=== PATIENT | female | born 1945 | race Caucasian/White ===

== ENCOUNTER → 2018-06-26 13:15 | Outpatient (CLI) | payer MEDICARE, SELFPAY | PROVIDERS: PCP Family Medicine; Visit Provider Student in an Organized Health Care Education/Training Program | DX: M16.12 Unilateral primary osteoarthritis, left hip (principal) | CPT/HCPCS: 99213 ==

== ENCOUNTER 2018-07-26 08:26 | Outpatient (CLI) | payer MEDICARE, SELFPAY ==
--- NOTE | 2018-07-26 08:09 | DI.RAD_ITS ---
SYMPTOM/DIAGNOSIS: PREOP TEMPLATE AP LEFT HIP. Joint space narrowing, articular sclerosis and subchondral cyst formation are demonstrated. There is jorden-articular hypertrophic spurring. The findings are consistent with severe DJD involving the left hip. These findings described on a prior study of 04/10/18.
== END 2018-07-26 08:46 ==
PROVIDERS: PCP Family Medicine; Referring Provider Family Medicine; Visit Provider Student in an Organized Health Care Education/Training Program
DX: M16.12 Unilateral primary osteoarthritis, left hip (principal); M25.552 Pain in left hip
CPT/HCPCS: 36415; 80048; 85027; 86850; 86900; 86901; 73501; NC PREOP

== ENCOUNTER 2018-07-26 09:22 | Outpatient (CLI) | payer MEDICARE, SELFPAY ==
[2018-07-26 11:35] LABS: HCT 44.4 % (36.0-46.0); HGB 14.4 g/dL (12.0-15.5); Mean Corp. HGB Concentration 32.4 g/dL (32.0-36.0); Mean Corpuscular Hemoglobin 29.8 pg (27.0-33.0); Mean Corpuscular Volume 91.7 fL (80-95); Mean Platelet Volume 9.7 fL (8.0-11.0); Platelet Count 261 x1000/uL (130-400); RBC 4.84 m/cumm (4.00-5.20); RBC Distribution Width 13.2 % (11.7-14.6); White Blood Cell Count 4.42 k/cumm (4.4-10.8)
[2018-07-26 12:04] LABS: Anion Gap 6.8 mmol/L (3-11); BUN 15 mg/dL (7-18); CO2 29.2 mmol/L (21.0-32.0); CREATININE 0.75 mg/dL (0.55-1.02); Chloride 104 mmol/L (98-107); Glucose 82 mg/dL (70-100); Potassium 4.3 mmol/L (3.5-5.1); Sodium 140 mmol/L (136-145)
--- NOTE | 2018-07-27 08:04 | W.PREOPHP ---
Documented by User: Alma Daniel 07/27/18 10:40 Date of service: 07/26/18 Assessment and Plan (1) Primary osteoarthritis of left hip: Current visit: No Status: Chronic X-ray of left hip with marker: Severe DJD noted with [id number] articulation with the presence of osteophytes at the superior aspect of joint, calcific changes as well as subchondral cyst at inferior aspect of hip joint. X-ray findings was compared to x-ray from April 11, 2018. Plan: Patient has continued to have left hip pain and has failed conservative therapies including [id number] pain medication and fluoroscopic intra-articular injection, at this time due to patient's severe arthritis noted on x-ray as well as her persistent left hip pain surgical intervention is recommended. Discussed surgical technique, recovery as well as surgical risks including but not limited to infection, injury to nerve/soft tissue/blood vessels with patient and her daughter in detail. After discussion patient elects to continue with surgery. Patient and her daughter had opportunity to have questions answered to their satisfaction. Patient will continue with her preoperative visits for her scheduled left MADDIE on August 01, [address] Ortega. Patient will contact office if any issues arise prior to scheduled date. History of Present Illness Chief Complaint: Here for my pre-op visit for my [left] hip replacement Narrative: Ms. Arauz is a 72-year-old female who presents to clinic with her daughter for her preoperative visit for her left MADDIE scheduled on August 01, [address] Ortega. Patient reports that her left hip has been causing pain located in the lateral and anterior groin. She describes pain as an intense ache located in her anterior groin and a shooting pain that will radiate to her left buttocks. Patient reports her pain has been aggravated by any kind of bending action, prolonged walking, walking on uneven ground and reports that she feels unstable going downstairs. She occasionally had to limp due to the severity of pain. She had attended physical therapy for left hip complaints in the past which helped improve her strength in 2013. Patient had tried ibuprofen and naproxen on a regular schedule to help reduce pain, she describes that the medications helped to improve the feeling of inflammation but did not provide adequate pain relief. Patient did undergo a fluoroscopy hip injection on April 13, 2018 which she reports provided approximately 6 weeks of pain relief. Patient denies any falls or injuries since she was last seen. She denies any numbness or tingling. Patient denies history of chest pain but describes infrequent history of occasional left-sided chest pressure that occurs when she feels like her heart skips a beat/has an extra beat. Episodes have happened when patient was at rest. Patient reports onset of this feeling around the time of her kidney stone, she reports seeing addiction professional several years ago for this issue and receiving EKGs at that time. Patient reports there are no abnormal findings in her cardiac workup. Patient denies any radiation of pressure to her jaw or arm. Denies diaphoresis or dyspnea. Patient reports she has not had this feeling in greater than 1 year. Pertinent Surgical Information See HPI for information regarding complaints of chest pressure. Patient denies past medical history of stroke, cardiac issues, asthma, COPD, obstructive sleep apnea, liver issues, hepatitis, gastrointestinal ulcers, bleeding disorders, seizures, depression, diabetes, autoimmune disorders or thyroid disease. Patient denies prior complications from surgery or anesthesia. Review of Systems Constitutional Denies fever(s), Denies frequent falls, Reports headache(s) (Occasional headaches improve with ibuprofen) and Reports weight loss (~20 lbs over the last year due to stress surrounding helping her elderly father) Eyes Denies change in vision ENT Reports headache(s) (Occasional headaches improve with ibuprofen), Denies epistaxis, Denies nasal discharge and Denies sore throat Comments: denies change in hearing, patient wears upper and lower dentures Cardiovascular Denies chest pain, Denies chest pain at rest, Denies rapid heart rate, Reports irregular heart rhythm (reports she feels like her heart skips a beat or has an extra beat, last occurrence was greater than 1 year ago), Denies lightheadedness, Denies radiating jaw, neck or arm pain, Denies dyspnea, Denies dyspnea on exertion, Denies orthopnea, Denies paroxysmal nocturnal dyspnea and Denies slow heart rate Comments: Describes infrequent left chest pressure that occurs when patient feels like her heart skips a beat/has an extra beat. Respiratory Denies cough (denies productive cough), Denies dyspnea, Denies dyspnea on exertion and Denies wheezing Gastrointestinal Denies abdominal pain, Denies melena, Denies hematochezia, Reports constipation (Chronic, treats with Colace as needed), Denies diarrhea, Denies nausea and Denies vomiting Genitourinary Denies hematuria, Reports nocturia, Denies dysuria and Denies urinary urgency Musculoskeletal Reports deformity (Reports right leg longer than left), Denies joint swelling, Reports muscle weakness, Denies numbness, Reports stiffness and Denies tingling Neurologic Denies frequent falls, Reports headache(s) (Occasional headaches improve with ibuprofen), Denies numbness and Denies tingling Psychiatric Reports anxiety (Surrounding caring for her father) and Denies depression Allergic/Immunologic Denies wheezing PFSH Family History Mother Heart disease Stroke Atrial fibrillation Sister Personal history of malignant neoplasm Heart disease Father Heart disease Constipation Osteoarthritis Sister Atrial fibrillation Osteoarthritis Hypertension Medical History Kidney stone Borderline hyperlipidemia (Acute) Borderline high blood pressure (Chronic) Constipation (Chronic) Social History marital status: number of children: 7 current occupational status: retired Smoking/Tobacco Use Status: Never alcohol intake: never substance use type: does not use Surgical History Dilation and curettage removal of kidney stone Meds Home Medications Medication Instructions Recorded Confirmed Type docusate sodium [Colace] 50 mg PO PRN NS 04/13/13 07/27/18 History aspirin 81 mg PO DAILY tab-cap 04/10/18 07/27/18 History sennosides [senna] 8.6 mg PO PRN PRN 07/26/18 07/26/18 History Allergies Allergy/AdvReac Type Severity Reaction Status Date / Time No Known Allergies Allergy Verified 07/27/18 08:25 Exam Const General: cooperative, healthy appearing and no acute distress [facility] Head: normal to inspection, normocephalic and atraumatic Ears: external ears normal General nose exam: no nasal discharge Face and sinus: face symmetric Mouth: oral mucosae normal and other (Full upper and lower dentures intact) Throat: posterior oropharynx normal Eyes General: appearance normal, both eyes and all related structures Pupils: PERRL EOM: EOM intact bilaterally Neck Neck: normal visual inspection and trachea midline Carotids: normal carotid upstroke Lymphatic: no lymphadenopathy noted Resp Effort & Inspection: normal respiratory effort Auscultation: clear to auscultation bilaterally Cardio Heart Sounds: S1 normal, S2 normal, no gallops, no murmurs and no rubs Pulses: radial pulses present GI Palpation: soft and no hepatosplenomegaly (Slight tenderness to deep palpation of liver edge) Auscultation: normal bowel sounds Skin General skin exam: no rashes or lesions noted Neuro General: alert and awake Extrem Other: Left hip examination: Skin is intact without areas of rash, erythema, edema or ecchymosis. Active range of motion yields flexion of 100 degrees and full extension. Passive range of motion elicits internal rotation of 5 degrees with pain at the anterior joint and external rotation of 20 degrees. Resisted straight leg raise elicited pain in the anterior aspect of joint. Results Labs : 07/26/18 11:02 07/26/18 11:02 Laboratory Results - last 24 hr 07/26/18 07/26/18 07/26/18 11:02 11:02 11:02 WBC 4.42 RBC 4.84 Hgb 14.4 Hct 44.4 MCV 91.7 MCH 29.8 MCHC 32.4 RDW 13.2 Plt Count 261 MPV 9.7 Sodium 140 Potassium 4.3 Chloride 104 Carbon Dioxide 29.2 Anion Gap 6.8 BUN 15 Creatinine 0.75 Estimated GFR/1.73 m2 >= 60.00 Glucose 82 Calcium 9.0 Patient ABO/Rh A Positive Antibody Screen Negative
--- NOTE | 2018-07-27 08:10 | HPE_ITS ---
Documented by User: Alma Daniel 07/27/18 10:40 Date of service: 07/26/18 Assessment and Plan (1) Primary osteoarthritis of left hip: Current visit: No Status: Chronic X-ray of left hip with marker: Severe DJD noted with [id number] articulation with the presence of osteophytes at the superior aspect of joint, calcific changes as well as subchondral cyst at inferior aspect of hip joint. X- ray findings was compared to x-ray from April 11, 2018. Plan: Patient has continued to have left hip pain and has failed conservative therapies including [id number] pain medication and fluoroscopic intra- articular injection, at this time due to patient's severe arthritis noted on x- ray as well as her persistent left hip pain surgical intervention is recommended. Discussed surgical technique, recovery as well as surgical risks including but not limited to infection, injury to nerve/soft tissue/blood vessels with patient and her daughter in detail. After discussion patient elects to continue with surgery. Patient and her daughter had opportunity to have questions answered to their satisfaction. Patient will continue with her preoperative visits for her scheduled left MADDIE on August 01, [address] Ortega. Patient will contact office if any issues arise prior to scheduled date. History of Present Illness Chief Complaint: Here for my pre-op visit for my [left] hip replacement Narrative: Ms. Arauz is a 72-year-old female who presents to clinic with her daughter for her preoperative visit for her left MADDIE scheduled on August 01, [address] Ortega. Patient reports that her left hip has been causing pain located in the lateral and anterior groin. She describes pain as an intense ache located in her anterior groin and a shooting pain that will radiate to her left buttocks. Patient reports her pain has been aggravated by any kind of bending action, prolonged walking, walking on uneven ground and reports that she feels unstable going downstairs. She occasionally had to limp due to the severity of pain. She had attended physical therapy for left hip complaints in the past which helped improve her strength in 2013. Patient had tried ibuprofen and naproxen on a regular schedule to help reduce pain, she describes that the medications helped to improve the feeling of inflammation but did not provide adequate pain relief. Patient did undergo a fluoroscopy hip injection on April 13, 2018 which she reports provided approximately 6 weeks of pain relief. Patient denies any falls or injuries since she was last seen. She denies any numbness or tingling. Patient denies history of chest pain but describes infrequent history of occasional left-sided chest pressure that occurs when she feels like her heart skips a beat/has an extra beat. Episodes have happened when patient was at rest. Patient reports onset of this feeling around the time of her kidney stone , she reports seeing print developer several years ago for this issue and receiving EKGs at that time. Patient reports there are no abnormal findings in her cardiac workup. Patient denies any radiation of pressure to her jaw or arm. Denies diaphoresis or dyspnea. Patient reports she has not had this feeling in greater than 1 year. Pertinent Surgical Information See HPI for information regarding complaints of chest pressure. Patient denies past medical history of stroke, cardiac issues, asthma, COPD, obstructive sleep apnea, liver issues, hepatitis, gastrointestinal ulcers, bleeding disorders, seizures, depression, diabetes, autoimmune disorders or thyroid disease. Patient denies prior complications from surgery or anesthesia. Review of Systems Constitutional Denies fever(s), Denies frequent falls, Reports headache(s) (Occasional headaches improve with ibuprofen) and Reports weight loss (~20 lbs over the last year due to stress surrounding helping her elderly father) Eyes Denies change in vision ENT Reports headache(s) (Occasional headaches improve with ibuprofen), Denies epistaxis, Denies nasal discharge and Denies sore throat Comments: denies change in hearing, patient wears upper and lower dentures Cardiovascular Denies chest pain, Denies chest pain at rest, Denies rapid heart rate, Reports irregular heart rhythm (reports she feels like her heart skips a beat or has an extra beat, last occurrence was greater than 1 year ago), Denies lightheadedness , Denies radiating jaw, neck or arm pain, Denies dyspnea, Denies dyspnea on exertion, Denies orthopnea, Denies paroxysmal nocturnal dyspnea and Denies slow heart rate Comments: Describes infrequent left chest pressure that occurs when patient feels like her heart skips a beat/has an extra beat. Respiratory Denies cough (denies productive cough), Denies dyspnea, Denies dyspnea on exertion and Denies wheezing Gastrointestinal Denies abdominal pain, Denies melena, Denies hematochezia, Reports constipation (Chronic, treats with Colace as needed), Denies diarrhea, Denies nausea and Denies vomiting Genitourinary Denies hematuria, Reports nocturia, Denies dysuria and Denies urinary urgency Musculoskeletal Reports deformity (Reports right leg longer than left), Denies joint swelling, Reports muscle weakness, Denies numbness, Reports stiffness and Denies tingling Neurologic Denies frequent falls, Reports headache(s) (Occasional headaches improve with ibuprofen), Denies numbness and Denies tingling Psychiatric Reports anxiety (Surrounding caring for her father) and Denies depression Allergic/Immunologic Denies wheezing PFSH Family History Mother Heart disease Stroke Atrial fibrillation Sister Personal history of malignant neoplasm Heart disease Father Heart disease Constipation Osteoarthritis Sister Atrial fibrillation Osteoarthritis Hypertension Medical History Kidney stone Borderline hyperlipidemia (Acute) Borderline high blood pressure (Chronic) Constipation (Chronic) Social History marital status: number of children: 7 current occupational status: retired Smoking/Tobacco Use Status: Never alcohol intake: never substance use type: does not use Surgical History Dilation and curettage removal of kidney stone Meds Home Medications Medication Instructions Recorded Confirmed Type docusate sodium [Colace] 50 mg PO PRN NS 04/13/13 07/27/18 History aspirin 81 mg PO DAILY tab-cap 04/10/18 07/27/18 History sennosides [senna] 8.6 mg PO PRN PRN 07/26/18 07/26/18 History Allergies Allergy/AdvReac Type Severity Reaction Status Date / Time No Known Allergies Allergy Verified 07/27/18 08:25 Exam Const General: cooperative, healthy appearing and no acute distress [facility] Head: normal to inspection, normocephalic and atraumatic Ears: external ears normal General nose exam: no nasal discharge Face and sinus: face symmetric Mouth: oral mucosae normal and other (Full upper and lower dentures intact) Throat: posterior oropharynx normal Eyes General: appearance normal, both eyes and all related structures Pupils: PERRL EOM: EOM intact bilaterally Neck Neck: normal visual inspection and trachea midline Carotids: normal carotid upstroke Lymphatic: no lymphadenopathy noted Resp Effort & Inspection: normal respiratory effort Auscultation: clear to auscultation bilaterally Cardio Heart Sounds: S1 normal, S2 normal, no gallops, no murmurs and no rubs Pulses: radial pulses present GI Palpation: soft and no hepatosplenomegaly (Slight tenderness to deep palpation of liver edge) Auscultation: normal bowel sounds Skin General skin exam: no rashes or lesions noted Neuro General: alert and awake Extrem Other: Left hip examination: Skin is intact without areas of rash, erythema, edema or ecchymosis. Active range of motion yields flexion of 100 degrees and full extension. Passive range of motion elicits internal rotation of 5 degrees with pain at the anterior joint and external rotation of 20 degrees. Resisted straight leg raise elicited pain in the anterior aspect of joint. Results Labs : 07/26/18 11:02 07/26/18 11:02 Laboratory Results - last 24 hr 07/26/18 07/26/18 07/26/18 11:02 11:02 11:02 WBC 4.42 RBC 4.84 Hgb 14.4 Hct 44.4 MCV 91.7 MCH 29.8 MCHC 32.4 RDW 13.2 Plt Count 261 MPV 9.7 Sodium 140 Potassium 4.3 Chloride 104 Carbon Dioxide 29.2 Anion Gap 6.8 BUN 15 Creatinine 0.75 Estimated GFR/1.73 m2 >= 60.00 Glucose 82 Calcium 9.0 Patient ABO/Rh A Positive Antibody Screen Negative
== END 2018-07-26 09:42 ==
PROVIDERS: PCP Family Medicine; Visit Provider Student in an Organized Health Care Education/Training Program
DX: M25.552 Pain in left hip (principal); M16.12 Unilateral primary osteoarthritis, left hip; Z01.818 Encounter for other preprocedural examination
CPT/HCPCS: 36415; 80048; 85027; 86850; 86900; 86901

== ENCOUNTER → 2018-08-01 07:46 | Outpatient (BNVA) | payer MEDICARE, SELFPAY | PROVIDERS: PCP Family Medicine; Referring Provider Family Medicine; Visit Provider Student in an Organized Health Care Education/Training Program | DX: R69 Illness, unspecified (principal) ==

== ENCOUNTER 2018-08-01 11:44 | Inpatient (IN) | payer MEDICARE, SELFPAY ==
[2018-08-01] VITALS (11 sets, daily range): BP systolic 116–154; BP diastolic 61–88; PULSE 62–87; RESP 13–34; TEMP 36.2–37; O2SAT 98–100
[2018-08-01] MEDS: Lactated Ringers 1,000 ML 80 ML IV ×2 (11:38→15:38)
[2018-08-01] MEDS: Celecoxib 200 MG CAP 400 MG PO (11:39)
[2018-08-01] MEDS: Bupivacaine 0.25% Pres-Free 10 ML VIAL 50 ML IJ (14:25)
[2018-08-01] MEDS: Ketorolac 30 MG/ML VIAL (14:25)
[2018-08-01] MEDS: Normal Saline 50 ML (14:25)
--- NOTE | 2018-08-01 14:32 | DI.RAD_ITS ---
SYMPTOMS/DIAGNOSIS: OSTEOARTHRITIS, LEFT HIP LT HIP IN THE OR: Fluoroscopy Time: 39.4 sec C-arm fluoroscopy was utilized by Dr. Ortega. Hard copies show placement of total hip joint replacement on the left.
--- NOTE | 2018-08-01 14:43 | PT.INNT ---
Date of service: 08/01/18 Time of Service: 14:44 PT Notes PHYSICAL THERAPY NOTE 08/01/18 PT consult received, chart reviewed, pt not yet to unit. Elizabeth Quinn PT
--- NOTE | 2018-08-01 15:27 | DI.RAD_ITS ---
SYMPTOMS/DIAGNOSIS: S/P LEFT ANTERIOR TOTAL HIP ARTHROPLASTY PORTABLE PELVIS: AP view of the pelvis was obtained and shows total hip joint replacement in position on the left. Components appear well seated. No other significant bony abnormality seen.
[2018-08-01] MEDS: Normal Saline Flush 10 ML SYR IV (16:45)
--- NOTE | 2018-08-01 17:53 | NUR.NOTE ---
Nursing Note: Patient admitted to room 212 from PACU via stretcher at 1606
--- NOTE | 2018-08-01 19:22 | NUR.NOTE ---
Nursing Note: When this patient arrived to the floor just after 1600 she was able to barely lift her left leg off the bed. Patient also stated that she could feel this RN touching her leg but that it also feels numb from her butt down. At approximately 1800 the patient states that everything still feels numb. Patient is able to fully pick her leg off the bed now as well as move her foot and bend her knee.
[2018-08-01] MEDS: Celecoxib 100 MG CAP 200 MG PO (20:26)
[2018-08-01] MEDS: Acetaminophen 500 MG TAB 1000 MG PO (20:27)
[2018-08-02 00:12] VITALS: BP 128/75; PULSE 60; RESP 19; TEMP 36.6; O2SAT 98
[2018-08-02] MEDS: Lactated Ringers 1,000 ML 80 ML IV (01:09)
[2018-08-02 03:55] VITALS: BP 113/65; PULSE 70; RESP 18; TEMP 36.7; O2SAT 98
--- NOTE | 2018-08-02 06:57 | ROE_ITS ---
Date of service: 08/01/18 Time of Service: 15:20 Operative Note DATE OF PROCEDURE: 08/01/18 PRE-OP DIAGNOSIS: Left Hip Osteoarthritis POST-OP DIAGNOSIS: same PROCEDURE: Left Anterior Total Hip Arthroplasty SURGEON: Dany Ortega VACUUM CLEANER ASSEMBLER: Christopher Sow ANESTHESIA: spinal ESTIMATED BLOOD LOSS: 300 PATHOLOGY: none sent COMPLICATIONS: None Patient was transported to: PACU Patient's condition: stable Implants: 1. Depuy [place] Acetabular Component, 52 mm 2. Depuy Acetabular Liner, 52 x 36 mm 3. Depuy Corail coxa vara femoral Stem, Size 12 4. Depuy Altrx Ceramic Femoral Head, Size 36+1.5 mm Indications: I have seen Anna in clinic for symptoms of hip arthritis, confirmed with radiographic findings. Anna has exhausted nonoperative methods and was having significant limitations in daily function and desired better function and less pain. I discussed the technical details of a hip replacement. I explained the risks of the procedure to include, but not limited to, bleeding, infection, pain, stiffness, fracture, damage to nerves and vessels, damage to muscles and tendons, loosening, instability, leg length inequality, need for repeat procedure, blood clot and cardiopulmonary demise. Despite these risks, she elected to proceed. Findings: There was significant signs of arthritis throughout the hip. Large osteophytes were noted along the femoral neck as well as the superior acetabulum. Her bone overall was quite soft with 2 chips noted at the cut surface were osteophytes chipped off. Neither had propagation of fracture. Procedure Description: Anna was greeted in the preoperative holding area where the correct side was identified and marked. The consent was reviewed with the patient and signed. The history and physical was updated. All questions were answered. Anna was taken back to the operating room. A spinal anesthestic was then administered. The patient was placed into the supine position on the operating room table. The patient was then positioned onto the ARCH table. Both feet were wrapped with [place]brill cotton wrap along with Coban. The feet were placed in specialized boots for the ARCH table, well seated within the boot and secured. SCDs were applied. The patient was then slid down onto a peroneal post and the nonoperative leg was secured in a leg langford attached to the table. The operative side was placed into the ARCH table attachment and bed height and positioning was secured. A preoperative AP pelvis was obtained to serve as a reference for determining leg lengths. Prophylactic antibiotics in the form of cefazolin were administered. 1g of Tranxemic Acid was given intravenously within 30 minutes of incision. The left leg was then prepped with Chloraprep and draped in a standard fashion with a large shower-curtain type drape with Iodine impregnated skin protection. A timeout to confirm correct identity, side and site, procedure, allergies, anesthesia, and medical concerns was performed. An obliquely oriented incision was made starting lateral to the ASIS and running distal over the Tensor Fascia Bianca (TFL) muscle belly toward the fibular head, approximately 10cm. The skin and soft tissue was dissected sharply, through Jaycob?s fascia, and to the fascia of the TFL. With the fascia and superior border of the IT band identified, the fascia was incised with a new knife just above any perforators from the IT band. The TFL muscle belly was bluntly dissected away from the fascia and moved laterally. The fat between TFL and rectus was identified to ensure the dissection was not within the TFL. Blunt dissection created space between abductors and the capsule and retractor was placed over the lateral femoral neck. The fibers of the rectus femoris tendon were identified and these were freed from the anterior capsule. A second cobra retractor was placed around the medial femoral neck. The TFL was further retracted laterally to show the deep fascia. Careful dissection through this layer identified three main crossing vessels of the lateral femoral circumflex. These were cauterized in multiple locations and then cut without any noticeable bleeding. The TFL was further released bluntly from the deep fascia to expose anterior hip capsule and fat the Osorio orthopaedic retractor was then placed beneath the TFL and against sartorius and medial soft tissues to protect and retract the soft tissues. A T-capsulotomy was then performed starting at the superior lateral acetabulum and moving distally to the intertrochanteric ridge. These capsular flaps were tagged with a No. 1 Ethibond and elevated from within. The capsular flaps were released to the shoulder of the lateral neck and to the lesser trochanter to give excellent visualization of the proximal femur. A neck osteotomy was performed using an oscillating saw based on preoperative templates. This cut started in the shoulder and of the lateral neck and exited medially. The saw was at all times directed medially to avoid injury to the greater trochanter. 6cm of traction was applied to the leg and the osteotomy opened. The femoral head was removed with a corkscrew, making sure to protect the TFL on its exit. This was measured on the back table to determing the starting reamer size. Portions of the rectus obscuring visualization were minimally elevated off the superior acetabulum. An anterior retractor was placed over the anterior wall between capsule and labrum. A posterior retractor was placed similarly. This provided excellent visualization. The contents of the cotyloid fossa were removed with electrocautery and the labrum was removed with a knife. There was a notable floor osteophyte. Acetabular reaming began with a 45 mm reamer. This first reaming was directed anterior to posterior and medial to get down to the true floor. This was inspected and reamed until the true floor was reached. I then reamed sequentially up to a 51 mm reamer where good fit was obtained. The larger reamers were oriented based on anatomical reference of the anterior and lateral acosta to ensure proper abduction and anteversion. Positioning and size was confirmed with the fluoroscopy. A 52 mm Depuy [place] acetabular component was selected. The acetabulum was reamed around the periphery with the selected acetabular size to prevent a rim fit. The deep tissues were irrigated. The acetabular component was then impacted in a position of about 40-45 degrees of abduction and 15-20 degrees of anteversion, using the patient?s anatomy as the ultimate landmark. Fluoroscopy was used to confirm this. There was excellent agricultural education instructor of the acetabular component and the inserting handle was removed. A primary acetabular screw was placed into the ilium by drilling through one of the holes in the acetabular component. This was measured and an approrpriately sized screw was placed with excellent purchase. It was checked not to be proud. The acetabular liner, Depuy 52 x 36 mm polyethylene liner, was inserted and lined up with the tines of the acetabular component. There was no soft tissue interposition. The liner was then impacted into position and confirmed to be well-seated. A portion of the jorden-articular cocktail was then injected around the acetabulum into the capsule and periosteum. This cocktail consisted of 50cc of 0.25% Bupivicaine and 20cc of Exparel, expanded to a total of 120cc. Traction was released from the femur. The leg was rotated to 120 degrees. Any remaining medial capsule was released until the lesser trochanter was easily palpable. A Simons retractor was placed medially. The lateral capsule was further released into the shoulder to allow access to the greater trochanter. A Simons retractor was placed over the greater trochanter which allowed the trochanter to flip in front of the capsule for excellent exposure. The leg was brought down into maximal extension and 20 degrees of adduction while ensuring there was no impingement on the acetabulum. Any remnant capsule within the trochanter was released. Piriformis and obturator externis were identified and protected. There was excellent access to the proximal femur. The lateral neck remnant was removed with a rongeur. A blunt canal probe was used to identify the canal and trajectory for later broaching. A box osteotome initiated the broach course. A small curved rasp and a curved curette were used to work laterally. Broaching then began with a size 8 Corail broach. This was inserted manually around the trochanter and into the canal before mallet blows. The broach was seated to a few millimeters below the cut level based on the neck cut and the preoperative template. Sequential broaching was continued until a tight fit was obtained with good rotational control of the femur. The excess bone above the level of the implant was then planed. During this planning process some of the bone spurs, 2 , from around the neck cut level cracked off. These were removed. Left a small chip out of the bone at the neck cut level. It did not affect rotational stability. A trial coxa vara neck was inserted along with a +1.5 trial head. The leg was brought out of extension and adduction and then reduced with traction and internal rotation. The leg was stable anteriorly in a position of 30 degrees of extension and 90 degrees of external rotation. Fluoroscopy was used to ensure there was no fracture and the stem was seated well. Leg lengths were checked with an AP pelvis and pelvic reference points. Once content with the desired offset and leg lengths, the leg was brought back into extension, external rotation and adduction. The periosteum and surrounding tissue was injected with remaining portion of the jorden-articular cocktail. The proximal femur was irrigated as well as the deep tissues. The [employer] Corail coxa vara stem, size 12, was then manually inserted into the proximal femur making sure to control rotation. It was then malleted into position with light blows, giving breaks to allow bone expansion and decrease risk of fracture. The selected Depuy Altrx Ceramic Head, size 36+ 1.5 mm, was then placed onto the clean and dry trunnion and secured with impaction onto the tapered fit. The leg was brought back out of extension and adduction and reduced with traction and internal rotation. Stability was confirmed with no shuck at 90 degrees of external rotation and 30 degrees of extension. No impingement through range of motion arc. Final x-ray images were obtained with fluoroscopy to confirm adequate positioning and no intraoperative fracture. The deep tissues were thoroughly irrigated with a pulse lavage. The second dose of TXA 1g was administered intravenously. The capsule was then reapproximated with the previously placed Ethibond sutures. The TFL fascia was finally closed with a No. 2 Stratafix, barbed suture. Deep tissues were then reapproximated with 0 Vicryl and a running 2-0 Vicryl. The skin was closed with a running 4-0 Monocryl in a subcuticular fashion. This was reinforced with skin glue. A Mepilex silver dressing was applied. At the end of the case, all counts were correct. Anna was transferred to the hospital bed without difficulty and suffering no apparent complication. Anna has a good prognosis. Physical therapy will start today and without restrictions, weight-bearing as tolerated. Aspirin 81mg BID will be used for DVT prophylaxis.
[2018-08-02 07:21] LABS: HCT 35.6 % (36.0-46.0); HGB 11.7 g/dL (12.0-15.5); Mean Corp. HGB Concentration 32.9 g/dL (32.0-36.0); Mean Corpuscular Hemoglobin 30.3 pg (27.0-33.0); Mean Corpuscular Volume 92.2 fL (80-95); Mean Platelet Volume 9.8 fL (8.0-11.0); Platelet Count 215 x1000/uL (130-400); RBC 3.86 m/cumm (4.00-5.20); RBC Distribution Width 12.8 % (11.7-14.6); White Blood Cell Count 7.95 k/cumm (4.4-10.8)
[2018-08-02 07:26] LABS: Anion Gap 6.5 mmol/L (3-11); BUN 12 mg/dL (7-18); CO2 28.5 mmol/L (21.0-32.0); CREATININE 0.71 mg/dL (0.55-1.02); Calcium 8.3 mg/dL (8.5-10.1); Chloride 105 mmol/L (98-107); Glucose 102 mg/dL (70-100); Potassium 3.7 mmol/L (3.5-5.1); Sodium 140 mmol/L (136-145)
[2018-08-02 07:46] VITALS: BP 143/76; PULSE 75; RESP 16; TEMP 37; O2SAT 99
[2018-08-02] MEDS: Acetaminophen 500 MG TAB 1000 MG PO (08:57)
[2018-08-02] MEDS: Aspirin 81 MG CHEW PO (08:58)
[2018-08-02] MEDS: Celecoxib 100 MG CAP 200 MG PO (08:58)
--- NOTE | 2018-08-02 09:50 | PDOC.CMIN ---
- If Service Date Differs Date of service: 08/02/18 Time of Service: 09:50 Care Management Initial Assess REASON FOR HOSPITALIZATION:: Left Anterior Total Hip Arthroplasty. PAST MEDICAL HISTORY/PAST SURGICAL HISTORY:: Kidney stones, osteoarthritis (L hip), borderline HTN, borderline hyperlipidemia. Surgical hx: kidney stone removal, dilation and curettage. PREVIOUS FUNCTIONAL STATUS/SOCIAL/FAMILY SUPPORTS:: Anna resides in her own home in [facility] with her elderly father whom she cares for. For the next several weeks she is staying in her father's home while construction is taking place at her's. He father's house has five steps up to the porch and then one into the home, and Anna's home has two steps. There are grab bars at her father's home. Her father is in [place] for the winter. Anna's daughter, Elenita, will be staying with Anna for the next month to assist while she recovers from surgery. Anna has seven children, all of whom are local and are very supportive. She also reports she has many friends locally who can assist her if needed. She is independent with her ADLs and transportation and has several walkers at home that her mother () and father have used. 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 CURRENT FUNCTIONAL STATUS:: Anna is sitting in her chair with her son Gibson at bedside, when CM visits this morning. She is engaged in conversation, makes good eye contact and is talkative. Anna reports that her pain is minimal and that she has been working well with PT. She continues to receive IV fluids and antibiotics and is due to have her lawson removed this morning. Anna reports that she spoke with Dr. Ortega earlier and he is anticipating a discharge later this afternoon. Anna has no reservations about returning home and reports that she has great support with her daughter, Elenita, who is staying with her for a month prior to returing to [place]. Son Gibson is local, and Anna reports that he regularly visits daily. Anna is not sure if she has advanced directives and would like the paperwork if none are on file for her. CM will provide paperwork. ADVANCE DIRECTIVES:: None on file at [facility]. Patient provided with paperwork per request. Has patient been provided with information about the portal?: Yes Did the patient sign up for the portal?: No CODE STATUS:: Full Code INSURANCE COVERAGE / FINANCIAL ISSUES:: [employer], Medicare. CURRENT HOME/COMMUNITY SERVICES/EQUIPMENT:: No current home or community services. PRIMARY CARE PHYSICIAN:: Vida Moy. POTENTIAL DISCHARGE NEEDS:: Follow up appointment with MD. PATIENT/FAMILY EDUCATION NEEDS:: Discharge education, any limitations, and follow up plan of care. Ask Me Three discussion. ANTICIPATED BARRIERS TO DISCHARGE:: No anticipated barriers to discharge. TRANSPORTATION:: Anna will transport via private vehicle with her sonGibson. PLAN:: Anna will discharge home when medically ready per MD. Anticipate patient will discharge home with no services and follow up with MD. CM will continue to offer support to patient, family and care team regarding discharge planning and disposition.
--- NOTE | 2018-08-02 09:50 | PT.INIE ---
Date of service: 08/02/18 Time of Service: 08:25 PT Notes Inpatient Physical Therapy Evaluation Date: 08/02/18 Referring Doctor: Dany Ortega PT Orders: PT CONSULT: s/p anterior L MADDIE Precautions: WBAT L LE Patient Profile/Admitting Diagnosis: Pt is a 72yr old female s/p left anterior total hip arthroplasty by Dr. Ortega 08/01/18 PMHX: osteoarthritis left hip Social History/Home Situation: Lives in a house, 4-5 steps with railing to enter. Baseline mobility independent gait with no device, independent with ADLS. States her daughter is going to come live with her for a month upon return to home setting. Patient is a retired nurse from [employer]. Equipment Owned/DME: 2 canes, 2 4WW's, 2 FWW's, raised toilet seat and shower chair Subjective: Pt lying in bed, agreeable to therapy session, states she is planning on going home today. Objective: General Observation: IV R UE, lawson catheter Mental Status: A& O x3 Pain: no c/o pain Bed Mobility/Transfers: Supine-sit: HOB 30, independent Sit-stand: independent Bed-chair: indpendent with FWW Stand-sit: independent Gait: independent with FWW 250ft WBAT L LE. Pt returned to room and up in chair for breakfast. Stairs: instructed in up/down 5 steps with railing, WBAT L LE. Pt independent Therex: Pt issued home exercise program, instructed in therapeutic exercise. Performed ankle pumps, long arc quads, quad sets and glute sets x 20 reps Balance: Static Sitting: normal Dynamic Sitting: normal Static Standing:good Dynamic Standing: good Special Tests: Mobility Limitations Standardized Measure [facility] AM-PAC 6 clicks Basic Mobility Inpatient Short Form: Raw Score: 18 Standardized Score: 43.63 CMS Score: 46.58% CMS Modifier: CK Informed Consent/Education: Patient instructed in purpose of PT consult and plan of care. Assessment: Pt is a 72yr old female s/p left anterior total hip arthroplasty by Dr. Ortega 08/01/18 in setting of osteoarthritis left hip.\ Patient presents with clinical signs and symptoms consistent with post op anterior MADDIE, as demonstrated by the following impairment level findings: edema and tightness in left anterior hip at surgical site, decreased strength left up, decreased static and dynamic standing balance requiring FWW for gait stability. Pt was independent with transfers and gait with FWW, independent on stairs after instruction. Pt is at functional level to return to home setting today and following home exercise program and instructions provided by MD. Impairments are contributing to the following functional limitations: AMPAC score CMS Score: 46.58% Patient is assessed as a Low 81046 complexity based on the following: History: see above Examination: see above Presentation: stable Decision Making: AMPAC score CMS Score: 46.58% Goals: not applicable Plan of Care/Treatment Plan: PT eval only DISCHARGE RECOMMENDATIONS: Home, has all DME TREATMENT CODE/TIME: 25 IE 8:25 G Codes in the area mobility of walking and moving around: current status [id number] CK; projected status GP [id number]. Discharge status (if discharging) GP [id number] CK based on AMPAC score CMS Score: 46.58% Elizabeth Quinn PT.
--- NOTE | 2018-08-02 09:58 | IN_ITS ---
Date of service: 08/02/18 Time of Service: 08:25 PT Notes Inpatient Physical Therapy Evaluation Date: 08/02/18 Referring Doctor: Dany Ortega PT Orders: PT CONSULT: s/p anterior L MADDIE Precautions: WBAT L LE Patient Profile/Admitting Diagnosis: Pt is a 72yr old female s/p left anterior total hip arthroplasty by Dr. Ortega 08/01/18 PMHX: osteoarthritis left hip Social History/Home Situation: Lives in a house, 4-5 steps with railing to enter. Baseline mobility independent gait with no device, independent with ADLS. States her daughter is going to come live with her for a month upon return to home setting. Patient is a retired nurse from [employer]. Equipment Owned/DME: 2 canes, 2 4WW's, 2 FWW's, raised toilet seat and shower chair Subjective: Pt lying in bed, agreeable to therapy session, states she is planning on going home today. Objective: General Observation: IV R UE, lawson catheter Mental Status: A& O x3 Pain: no c/o pain Bed Mobility/Transfers: Supine-sit: HOB 30, independent Sit-stand: independent Bed-chair: indpendent with FWW Stand-sit: independent Gait: independent with FWW 250ft WBAT L LE. Pt returned to room and up in chair for breakfast. Stairs: instructed in up/down 5 steps with railing, WBAT L LE. Pt independent Therex: Pt issued home exercise program, instructed in therapeutic exercise. Performed ankle pumps, long arc quads, quad sets and glute sets x 20 reps Balance: Static Sitting: normal Dynamic Sitting: normal Static Standing:good Dynamic Standing: good Special Tests: Mobility Limitations Standardized Measure [facility] AM-PAC 6 clicks Basic Mobility Inpatient Short Form: Raw Score: 18 Standardized Score: 43.63 CMS Score: 46.58% CMS Modifier: CK Informed Consent/Education: Patient instructed in purpose of PT consult and plan of care. Assessment: Pt is a 72yr old female s/p left anterior total hip arthroplasty by Dr. Ortega 08/01/18 in setting of osteoarthritis left hip.\ Patient presents with clinical signs and symptoms consistent with post op anterior MADDIE, as demonstrated by the following impairment level findings: edema and tightness in left anterior hip at surgical site, decreased strength left up , decreased static and dynamic standing balance requiring FWW for gait stability. Pt was independent with transfers and gait with FWW, independent on stairs after instruction. Pt is at functional level to return to home setting today and following home exercise program and instructions provided by MD. Impairments are contributing to the following functional limitations: AMPAC score CMS Score: 46.58% Patient is assessed as a Low 21646 complexity based on the following: History: see above Examination: see above Presentation: stable Decision Making: AMPAC score CMS Score: 46.58% Goals: not applicable Plan of Care/Treatment Plan: PT eval only DISCHARGE RECOMMENDATIONS: Home, has all DME TREATMENT CODE/TIME: 25 IE 8:25 G Codes in the area mobility of walking and moving around: current status [id number] CK; projected status GP [id number]. Discharge status (if discharging) GP [id number] CK based on AMPAC score CMS Score: 46.58% Elizabeth Quinn PT.
--- NOTE | 2018-08-02 10:40 | INITIAL_ITS ---
- If Service Date Differs Date of service: 08/02/18 Time of Service: 09:50 Care Management Initial Assess REASON FOR HOSPITALIZATION:: Left Anterior Total Hip Arthroplasty. PAST MEDICAL HISTORY/PAST SURGICAL HISTORY:: Kidney stones, osteoarthritis (L hip), borderline HTN, borderline hyperlipidemia. Surgical hx: kidney stone removal, dilation and curettage. PREVIOUS FUNCTIONAL STATUS/SOCIAL/FAMILY SUPPORTS:: Anna resides in her own home in [facility] with her elderly father whom she cares for. For the next several weeks she is staying in her father's home while construction is taking place at her's. He father's house has five steps up to the porch and then one into the home, and Anna's home has two steps. There are grab bars at her father's home. Her father is in [place] for the winter. Anna's daughter, Elenita, will be staying with Anna for the next month to assist while she recovers from surgery. Anna has seven children, all of whom are local and are very supportive. She also reports she has many friends locally who can assist her if needed. She is independent with her ADLs and transportation and has several walkers at home that her mother () and father have used. 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 CURRENT FUNCTIONAL STATUS:: Anna is sitting in her chair with her son Gibson at bedside, when CM visits this morning. She is engaged in conversation, makes good eye contact and is talkative. Anna reports that her pain is minimal and that she has been working well with PT. She continues to receive IV fluids and antibiotics and is due to have her lawson removed this morning. Anna reports that she spoke with Dr. Ortega earlier and he is anticipating a discharge later this afternoon. Anna has no reservations about returning home and reports that she has great support with her daughter, Elenita, who is staying with her for a month prior to returing to [place]. Son Gibson is local, and Anna reports that he regularly visits daily. Anna is not sure if she has advanced directives and would like the paperwork if none are on file for her. CM will provide paperwork. ADVANCE DIRECTIVES:: None on file at [facility]. Patient provided with paperwork per request. Has patient been provided with information about the portal?: Yes Did the patient sign up for the portal?: No CODE STATUS:: Full Code INSURANCE COVERAGE / FINANCIAL ISSUES:: [employer], Medicare. CURRENT HOME/COMMUNITY SERVICES/EQUIPMENT:: No current home or community services. PRIMARY CARE PHYSICIAN:: Vida Moy. POTENTIAL DISCHARGE NEEDS:: Follow up appointment with MD. PATIENT/FAMILY EDUCATION NEEDS:: Discharge education, any limitations, and follow up plan of care. Ask Me Three discussion. ANTICIPATED BARRIERS TO DISCHARGE:: No anticipated barriers to discharge. TRANSPORTATION:: Anna will transport via private vehicle with her sonGibson. PLAN:: Anna will discharge home when medically ready per MD. Anticipate patient will discharge home with no services and follow up with MD. CM will continue to offer support to patient, family and care team regarding discharge planning and disposition.
--- NOTE | 2018-08-02 10:41 | PDOC.CMDIS ---
- If Service Date Differs Date of service: 08/02/18 Time of Service: 10:41 LACE Index Scoring Tool - Questions: Length of Stay (in days): 2 Acuity (Admit via E.D.?): No E.D. Visits: 1 - Answers: Total Score: 3 Risk of Readmission: Low Risk Care Management Discharge Reason for Hospitalization: Left Anterior Total Hip Arthroplasty. Discharge Plan: Anna will discharge home when medically ready per MD. Anticipate patient will discharge home with no services and follow up with MD. Anna will transport via private vehicle with her sonGibson. Patient/Family Education Needs: Discharge education, any limitations, and follow up plan of care. Ask Me Three discussion.
--- NOTE | 2018-08-02 10:44 | CMDISCH_ITS ---
- If Service Date Differs Date of service: 08/02/18 Time of Service: 10:41 LACE Index Scoring Tool - Questions: Length of Stay (in days): 2 Acuity (Admit via E.D.?): No E.D. Visits: 1 - Answers: Total Score: 3 Risk of Readmission: Low Risk Care Management Discharge Reason for Hospitalization: Left Anterior Total Hip Arthroplasty. Discharge Plan: Anna will discharge home when medically ready per MD. Anticipate patient will discharge home with no services and follow up with MD. Anna will transport via private vehicle with her sonGbison. Patient/Family Education Needs: Discharge education, any limitations, and follow up plan of care. Ask Me Three discussion.
[2018-08-02 11:34] VITALS: BP 114/68; PULSE 83; RESP 18; TEMP 36.7; O2SAT 99
--- NOTE | 2018-08-02 11:48 | W.PM.DS.N ---
Date of service: 08/02/18 Time of Service: 11:49 DS: Diagnosis Discharge Diagnosis (1) Primary osteoarthritis of left hip: Status: Chronic Discharge Plan Disposition Patient Disposition: HOME Condition: Good Discharge Details Reason For Visit: LEFT HIP ARTHRITIS Admit Date/Time: 08/01/18 10:56 Admit Provider: Dany Ortega Attending Provider: Dany Ortega Primary Care Provider: Vida Moy V Hospital Course Hospital Course: Patient was admitted to the medical/surgical floor following the procedure. It was tolerated well without any notable medical, surgical, or anesthetic complications. Mobilization began postoperatively. The lawson catheter was removed and voiding spontaneously. Vitals were stable. Physical therapy worked with the patient and was cleared for discharge home. No acute medical issues. Home Meds and New Rx's Prescriptions: New polyethylene glycol 3350 17 gram Powder In Packet 17 g PO BID PRN PRN (Reason: Constipation) Qty: 0 RF: 0 tramadol 50 mg Tablet 50 mg PO Q6H PRN PRN (Reason: Pain) Qty: 6 RF: 0 acetaminophen [Mapap Extra Strength] 500 mg Tablet 1,000 mg PO TID Qty: 90 RF: 3 docusate sodium [Colace] 100 mg Capsule 100 mg PO BID PRN PRN (Reason: Constipation) Qty: 0 RF: 0 aspirin 81 mg Tablet,Chewable 81 mg PO BID Qty: 80 RF: 0 celecoxib 200 mg capsule 200 mg PO BID Qty: 60 RF: 0 Continue docusate sodium [Colace] 50 MG capsule 50 mg PO PRN RF: 0 sennosides [senna] 8.6 mg Tablet 8.6 mg PO PRN PRNRF: 0 Discontinued aspirin 81 MG tablet,chewable 81 mg PO DAILY RF: 0 naproxen sodium 220 mg Capsule 220 mg PO BID PRNRF: 0 Discharge Instructions Additional Instructions: Dr. Ortega?s Total Hip Discharge Instructions Activity: The most important activity is to walk. You should try to take short walks a few times a day. You have no restrictions on movement or positioning, but do not try to force what you do. You will find some stiffness and weakness with hip flexion (lifting your knee). Do not try to strengthen this too early, continue to practice walking and stairs and this will come. - Outpatient physical therapy can be helpful to help return you to a normal gait and improve your flexibility and strength. This can start around 2 weeks. For some patients, it?s not necessary. Usually this is determined at the time of discharge or at the first post-operative visit. - You should wear the CAYLA hose on both legs for 4 weeks. Dressing: Keep the surgical dressing in place for at least one week. After the first week it may be removed and replace with light gauze and tape or nothing. It may get wet after 3 days but avoid soaking the dressing. If it gets wet, just lightly pat dry. It is important to always keep some gauze between skin folds, especially when you are sitting. Spend some time with the wound exposed when you are lying flat as the incision does wrinkle onto itself. Medications: - You should take Tylenol and an anti-inflammatory Celebrex as your primary pain control medications - You have been prescribed a stronger pain medication tramadol for breakthrough pain, take as needed as prescribed. - You have also been prescribed a stomach acid reduction agent Pantoprozole to help reduce stomach acid and reflux. - You will be taking aspirin 81mg twice a day for DVT prevention unless instructed otherwise. - If you have constipation you should take Colace or Miralax (both [id number]). It takes most people 3-4 days to have a bowel movement. Follow-up: 2 weeks Referrals: Dany Ortega MD [ [facility] STAFF PHYSICIAN] - 08/16/18 2:00 pm Activity:: Activity as Tolerated Equipment/Supplies:: No Equipment Needed Diet:: As Tolerated Discharge Orders Discharge Orders: Discharge Order (Routine); Ordered 08/02/18 Ordered By: Dany Ortega Exam Narrative Exam Narrative: Wound is clean dry and intact. She is able to ambulate independently. Mild swelling and ecchymosis. Sensation intact light touch of the lateral femoral cutaneous nerve as well as femoral nerve. DS: Data Vitals/I&O Vitals and I&O: Vital Signs Temperature 36.7 C 08/02/18 11:34 Temperature Source Temporal Artery Scan 08/02/18 11:34 Pulse 83 08/02/18 11:34 Pulse Rhythm Irregular 08/02/18 00:05 Respiratory Rate 18 08/02/18 11:34 Respiratory Effort 08/02/18 00:05 Respiratory Depth Normal 08/02/18 00:05 Respiratory Pattern Normal 08/02/18 00:05 Blood Pressure 114/68 08/02/18 11:34 Pulse Oximetry 99 08/02/18 11:34 Respiratory End-tidal CO2 33 08/01/18 15:50 Oxygen Delivery Method Room Air 08/02/18 11:34 Oxygen Flow Rate 0 08/02/18 11:34 Pain Level 0 08/02/18 09:57 Comment 08/02/18 07:46 Intake & Output 08/01/18 08/01/18 08/02/18 11:59 23:59 11:59 Intake Total 2036.667 / 2036.667 2305.167 / 2305.167 Output Total 1800 / 1800 1200 / 1200 Balance 236.667 / 984.972 2571.167 / 1105.167 Weight 65.8 kg Intake: IV 1056.667 / 0365.016 6631.167 / 1465.167 Oral 980 / 980 840 / 840 Output: Urine 1500 / 1500 1200 / 1200 Estimated Blood Loss 300 / 300 Other: Urine Color Pale Yellow Yellow Urine Appearance Clear Clear Comment PACU. dribble post catheter removal Emesis Description None Voiding Methods Toilet Pending studies at discharge: Endoscopic polypectomy of large intestine (04/17/13) Pyeloscopy (04/08/09) Removal of pyelostomy and nephrostomy tube (04/08/09) Transurethral removal of obstruction from ureter and renal pelvis (04/08/09) Ureteral catheterization (04/08/09) Ureteroscopy (04/08/09) WBC 7.95 k/cumm (4.4-10.8) 08/02/18 06:36 RBC 3.86 m/cumm (4.00-5.20) L 08/02/18 06:36 Hgb 11.7 g/dL (12.0-15.5) L 08/02/18 06:36 Hct 35.6 % (36.0-46.0) L 08/02/18 06:36 MCV 92.2 fL (80-95) 08/02/18 06:36 MCH 30.3 pg (27.0-33.0) 08/02/18 06:36 MCHC 32.9 g/dL (32.0-36.0) 08/02/18 06:36 RDW 12.8 % (11.7-14.6) 08/02/18 06:36 Plt Count 215 x1000/uL (130-400) 08/02/18 06:36 MPV 9.8 fL (8.0-11.0) 08/02/18 06:36 Sodium 140 mmol/L (136-145) 08/02/18 06:36 Potassium 3.7 mmol/L (3.5-5.1) 08/02/18 06:36 Chloride 105 mmol/L (98-107) 08/02/18 06:36 Carbon Dioxide 28.5 mmol/L (21.0-32.0) 08/02/18 06:36 Anion Gap 6.5 mmol/L (3-11) 08/02/18 06:36 BUN 12 mg/dL (7-18) 08/02/18 06:36 Creatinine 0.71 mg/dL (0.55-1.02) 08/02/18 06:36 Estimated GFR/1.73 m2 >= 60.00 (mL/min/1.73m2) 08/02/18 06:36 Glucose 102 mg/dL (70-100) H 08/02/18 06:36 Calcium 8.3 mg/dL (8.5-10.1) L 08/02/18 06:36 Labs on day of discharge: Labs from last 24 hours 08/02/18 08/02/18 06:36 06:36 WBC 7.95 RBC 3.86 L Hgb 11.7 L Hct 35.6 L MCV 92.2 MCH 30.3 MCHC 32.9 RDW 12.8 Plt Count 215 MPV 9.8 Sodium 140 Potassium 3.7 Chloride 105 Carbon Dioxide 28.5 Anion Gap 6.5 BUN 12 Creatinine 0.71 Estimated GFR/1.73 m2 >= 60.00 Glucose 102 H Calcium 8.3 L
== END 2018-08-02 14:00 | disposition home or self-care (01) | DRG 470 ==
LOC: PDS 14:08 → MS 08-02 00:34 → PDS 08-02 14:39
PROVIDERS: Admitting Provider Student in an Organized Health Care Education/Training Program; PCP Family Medicine; Visit Provider Student in an Organized Health Care Education/Training Program
PROC: 0SRB04A Replacement of Left Hip Joint with Ceramic on Polyethylene Synthetic Substitute, Uncemented, Open Approach (ICD-10-PCS; CPT 27130; principal; 2018-08-01 15:00)
DX: M16.12 Unilateral primary osteoarthritis, left hip (principal); Z96.652 Presence of left artificial knee joint
CPT/HCPCS: 27130; 36415; 80048; 85027; 97161; NC; 72170; 73501; J0690; J1100; J1885; J2250; J2405

== ENCOUNTER 2018-08-16 14:47 | Outpatient (CLI) | payer MEDICARE, SELFPAY ==
--- NOTE | 2018-08-16 14:44 | DI.RAD_ITS ---
SYMPTOMS/DIAGNOSIS: LT MADDIE LEFT HIP: The patient is status post THR. The prosthesis in good position. Surrounding bone intact.
== END 2018-08-16 15:07 ==
PROVIDERS: PCP Family Medicine; Referring Provider Family Medicine; Visit Provider Student in an Organized Health Care Education/Training Program
DX: Z96.642 Presence of left artificial hip joint (principal); Z47.1 Aftercare following joint replacement surgery
CPT/HCPCS: 73502

== ENCOUNTER → 2018-09-13 10:32 | Outpatient (BNVA) | payer MEDICARE, SELFPAY | PROVIDERS: PCP Family Medicine; Referring Provider Family Medicine; Visit Provider Student in an Organized Health Care Education/Training Program | DX: Z47.1 Aftercare following joint replacement surgery (principal); Z96.642 Presence of left artificial hip joint ==

== ENCOUNTER 2018-12-20 00:44 | Outpatient (CLI) | payer MEDICARE, SELFPAY ==
--- NOTE | 2018-12-20 08:00 | DI.US_ITS ---
SYMPTOMS/DIAGNOSIS: GALLBLADDER POLYPS, K82.4 ABDOMINAL ULTRASOUND: Comparison 12/20/17. The aorta is unremarkable as is the IVC. The liver measures 18 cm in length. There is again seen a 0.9 x 0.6 x 0.6 cm echogenic nodule in the right lobe of the liver. This is unchanged compared to the prior examination. This may represent a hemangioma. No other hepatic lesions are seen. The gallbladder shows multiple echogenic nonshadowing immobile foci along the wall likely reflecting polyps. No stones, sludge, gallbladder wall thickening or pericholecystic fluid is seen. The common duct is within normal limits at .3 cm. The pancreas, spleen and kidneys are unremarkable except for a 2.3 x 1.2 x 1.2 cm left parapelvic cyst. IMPRESSION: 1. Multiple echogenic immobile foci along the wall of the gallbladder likely reflecting polyps. 2. Stable echogenic foci in the right lobe of the liver which may represent a benign lesion such as a hepatic hemangioma.
== END 2018-12-20 01:04 ==
PROVIDERS: PCP Family Medicine; Visit Provider Family Medicine
DX: K82.4 Cholesterolosis of gallbladder (principal); K76.9 Liver disease, unspecified
CPT/HCPCS: 76700

== ENCOUNTER → 2019-01-05 10:33 | Outpatient (BNVA) | payer MEDICARE, SELFPAY | PROVIDERS: PCP Family Medicine; Referring Provider Family Medicine; Visit Provider Surgery | DX: K82.4 Cholesterolosis of gallbladder (principal); Z86.010 Personal history of colon polyps | CPT/HCPCS: 99214 ==

== ENCOUNTER 2019-01-16 09:14 | Day surgery (SDC) | payer MEDICARE, SELFPAY ==
--- NOTE | 2019-01-16 06:35 | W.COLOREPORT ---
Date of service: 01/16/19 Time of Service: 10:12 Colonoscopy Report Date of procedure: 01/16/19 Pre-op diagnosis general: Hx of polyps Post-op diagnosis procedure note: same Procedure: Colonoscopy with polypectomy by forceps Surgeon: Migdalia Ortega Anesthesia proc note operative: other (General/ ASA 2/ Coleen Solis CRNA) Estimated blood loss (mL): 2 Pathology: other (Ascending colon polyps x2) Complications: None Disposition: same day Indications: Mrs. Arauz is a pleasant 73 year old female seen in the office for a colonoscopy and Gallstone polyps. She has a history of colon polyps. Risks, benefits and complications have been reviewed. Complications include but are not limited to bleeding, pain, perforation, missed small lesion/polyp, sore throat, aspiration and adverse reaction to the medications. Questions were entertained and answered to their satisfaction and they wished to proceed. No guarantees were given or implied. Prep: Miralax/Dulcolax Procedure Start Time: 10:12 Procedure End Time: 10:47 Retraction Time: 19 minutes Findings: 2 small polyps in the ascending colon right at the junction with the cecum. Procedure Description: After informed consent was obtained the patient was taken to the procedure room and placed in a left decubitous position. Monitors were applied and a time out was done. The patients name, date of , procedure, allergies to medications and metal in their body was reviewed. The patient was then sedated. Once sedated and comfortable a rectal exam was done. External exam was normal. Internal exam revealed a normal sphincter tone and no palpable masses. The scope was then introduced and retro-flexed. No internal hemorrhoids were identified. The scope was then advanced to the cecum with difficulty. Her colon is very long and has a lot of twists and turns. The TI and appendiceal orifice were identified. The prep was adequate. There was some liquid stool noted throughout the colon. The scope was then slowly retracted over 19 minutes back into the rectum. Polyps were removed in the ascending colon with cold forceps. The scope was removed and the patient was woken up and taken back to Same day surgery in stable condition. The patient tolerated the procedure well and there were no immediate complications. Follow up: The patient should follow up in 5 years unless they develop changes in bowel habits or other new gastrointestinal complaints.
--- NOTE | 2019-01-16 06:37 | W.PM.DSUDISC ---
Discharge Plan Disposition Patient Disposition: HOME Condition: Good Discharge Details Reason For Visit: Colonoscopy Attending Provider: Migdalia Ortega Primary Care Provider: Vida Moy V Home Meds and New Rx's Prescriptions: Continued cholecalciferol (vitamin D3) 1,000 unit capsule 1,000 unit PO DAILY RF: 0 vitamin B complex [B Complex-Vitamin B12] tablet 1 tab PO DAILY RF: 0 sennosides [senna] 8.6 mg Tablet 8.6 mg PO PRN PRNRF: 0 acetaminophen [Mapap Extra Strength] 500 mg Tablet 1,000 mg PO TID Qty: 90 RF: 3 docusate sodium [Colace] 100 mg Capsule 100 mg PO BID PRN PRN (Reason: Constipation) Qty: 0 RF: 0 aspirin 81 mg Tablet,Chewable 81 mg PO BID Qty: 80 RF: 0 cyanocobalamin (vitamin B-12) 1,000 mcg Tablet 1,000 mcg PO RF: 0 Discontinued polyethylene glycol 3350 17 gram powder in packet 255 g PO DAILY Qty: 15 RF: 0 bisacodyl [Dulcolax (bisacodyl)] 5 mg tablet,delayed release (DR/EC) 5 mg PO ONCE Qty: 4 RF: 0 Discharge Instructions Instructions: Colonoscopy (DC) Additional Instructions: Findings: 2 small polyps Follow up: 5 years ? Please call if you develop: fevers >101.5 Nausea or Vomiting Abdominal pain that is not transient DAY SURGERY UNIT POST COLONOSCOPY INSTRUCTIONS 1. Because there will be medication in your system for the next 24 hours, you may feel a little sleepy. Your coordination will be affected. Therefore: a. Do not drive or operate dangerous equipment for 24 hours. b. Do not drink alcohol beverages for 24 hours (not even beer). c. Plan to go home and rest for the day. 2. Generally there are no restrictions on your activity after a day or so has gone by, but you may feel a bit fatigued for a few days. 3 After you arrive home you may have a light meal and return to a normal diet as you can tolerate it without feeling sick to your stomach. 4. After surgery, you may feel pain or discomfort. This should be only transient, but if it persists please contact your doctor. 5. If there are any questions regarding the findings of your procedure, please feel free to contact your doctor. 6. If you are unable to contact your doctor with a problem, contact the hospital at [phone]. 4. Continue all your regular medications unless directed otherwise. I understand the above instructions and have no questions. Signature of Patient or Responsible Adult Escort Date/Time Name of Responsible Adult Escort Signature of Nurse Date/Time Stand Alone Forms: Mary Ellen Dimas (NANDOU) Activity:: Activity as Tolerated Diet:: As Tolerated Discharge Orders Discharge Orders: Discharge Order (Routine); Ordered 01/16/19 Ordered By: Migdalia Ortega DS: Diagnosis Discharge Diagnosis (1) S/P colonoscopy: Status: Acute (2) Colorectal polyps: Status: Acute
[2019-01-16 09:25] VITALS: BP 145/84; PULSE 84; RESP 16; TEMP 36.8; O2SAT 97
[2019-01-16] MEDS: Lactated Ringers 1,000 ML 80 ML IV (09:57)
--- NOTE | 2019-01-16 10:32 | BOWEL_PTH ---
PATIENT: LOUISA MARINELLI LOC: [facility] U#:[id number] AGE/SX: 73/F ROOM: RE01/16/[address]: Migdalia Ortega MD : 1945 BED: DIS: 01/16/2019 SPEC #: [id number] RECD: 01/16/19 12:58 STATUS: DEVANTE REQ #: [id number] NORA: 01/16/19 10:[address]: Migdalia Ortega DEPT: Surgical Specimen RECD BY: Gilda Spencer ENTERED: 01/16/19 12:58 SP TYPE: Bowel OTHR DR: Vida Moy V Tissues: 1 - BIOPSY BOWEL Procedures: GROSS AND MICRO LEVEL 4 Comments: [id number]
[2019-01-16 11:35] VITALS: BP 123/72; PULSE 62; RESP 16; TEMP 36; O2SAT 99
== END 2019-01-16 12:05 | disposition home or self-care (01) ==
LOC: SUR 09:14
PROVIDERS: PCP Family Medicine; Visit Provider Surgery
PROC: 0DJD8ZZ Inspection of Lower Intestinal Tract, Via Natural or Artificial Opening Endoscopic (ICD-10-PCS; CPT 45378; principal; 2019-01-16 10:30)
DX: Z12.11 Encounter for screening for malignant neoplasm of colon (principal); D12.2 Benign neoplasm of ascending colon; Z86.010 Personal history of colon polyps
CPT/HCPCS: 45380; 88305

== ENCOUNTER 2019-04-02 00:08 | Outpatient (CLI) | payer MEDICARE, SELFPAY ==
--- NOTE | 2019-04-02 09:30 | MERGEMPI_ITS ---
*[facility]* [address] [place] [address] Myocardial Perfusion Imaging - SPECT José Antonio protocol Date of study: 04/02/2019 *PATIENT PRESENTATION* Height: 165.1cm (65in) Blood Pressure: Weight: 68.2kg (150lb) BSA: 1.78m^2 Referring physician: Dariusz Dahl MD Ordering physician: Vida Moy V Impressions: Normal perfusion by Tc99m Sestamibi Imaging. Summary: 1. Myocardial perfusion imaging: No myocardial perfusion defects noted. 2. The calculated left ventricular ejection fraction after stress: 52%. 3. Stress: The target heart rate was achieved. Indication: RO7.89. History: REASON FOR TESTING: OVER THE FEW YEARS PATIENT HAS BEEN EXPERIENCING LEFT SIDED CHEST PAIN--DULL ACHE THAT OCCASIONALLY GOES TO HER BACK. THIS CHEST DISCOMFORT HAPPENS RANDOMLY AT REST AND OCCASIONALLY WAKES HER UP DURING THE NIGHT. SHE REPORTS NO OTHER SYMPTOMS WITH THE CHEST DISCOMFORT. ALSO TESTING FOR FURTHER RISK STRATIFICATION. PATIENT REPORTS MILD ACHING OF LEFT CHEST UPON ARRIVAL TO TESTING TODAY. NO SIGNIFICANT PAST MEDICAL HISTORY. SMOKING STATUS: NEVER. EXERCISE ROUTINE: DAILY ADLS, WALKS DOG 3 TIMES PER DAY, AND OCCASIONAL STRETCHING. Risk factors: Family history of coronary artery disease. Hypertension. Dyslipidemia. Cholesterol: 207mg/dl. HDL: 69mg/dl. LDL: 135mg/dl. Triglycerides: 58mg/dl. ALLERGIES: LATEX, ADHESIVE.. MEDICATIONS: COLACE 100 MG BID PRN, SENNA 8.6 MG PRN, ACTAMINOPHEN 1000 MG PRN, ASPIRIN 81 MG BID, VITAMIN D 1000 UNITS DAILY, VITAMIN B COMPLEX DAILY, ASPIRIN 81 MG DAILY. Imaging Technique: Protocol: José Antonio protocol. Acquisition: Gated SPECT; 1 day - rest/stress. The patient was imaged in the supine position. Attenuation correction used. Isotope administration: - Rest. Tc[99m]-sestamibi. Dose: 10.3mCi. Injection time: 09:30 AM. Injection to stress time: 00:45. - Stress. Tc[99m]-sestamibi. Dose: 31mCi. Injection time: 11:58 AM. 1-2 min before end of exercise Baseline ECG: SINUS RHYTHM. 68 BPM. Stress protocol: + +---+ + !Stage !HR !BP (mmHg) ! + +---+ + !Baseline supine !68 !140/80 (100)! + +---+ + !Baseline standing !72 !142/90 (107)! + +---+ + !Stage I; 1.7mph, 10degrees; 3 min !119!170/94 (119)! + +---+ + !Stage II; 2.5mph, 12degrees; 3 min!130!172/96 (121)! + +---+ + !Peak stress !156! ! + +---+ + !Recovery; 1 min !118!198/90 (126)! + +---+ + !Recovery; 3 min !88 !180/88 (119)! + +---+ + !Recovery; 6 min !89 !156/70 (99) ! + +---+ + !Recovery; 9 min !86 !150/72 (98) ! + +---+ + !Recovery; 12 min !94 !170/90 (117)! + +---+ + * Stress results: STRESS TEST ENDED IN 7 MINUTES 43 SECONDS DUE TO FATIGUE. NORMAL HEART RATE AND BLOOD PRESSURE. MAX HEART RATE: 156. 105 % OF TARGET HEART RATE ACHIEVED. MET'S: 9.71. NO ECTOPY. NO ANGINA. NO SIGNIFICANT ST SEGMENT CHANGES. ABOVE AVERAGE FUNCTIONAL CAPACITY. Maximal heart rate during stress was 156bpm (105% of maximal predicted heart rate). The maximal predicted heart rate was 148bpm. The target heart rate was achieved. The rate-pressure product for the peak heart rate and blood pressure was 80688rh Hg/min. Myocardial perfusion: Imaging information: gated. No myocardial perfusion defects noted. Ventricular Function (Wall Motion): The calculated left ventricular ejection fraction after stress: 52%. Study data: Dariusz Dahl MD supervised and was readily available during the procedure. This study was interpreted by [facility]. Study status: Routine. Consent: The risks, benefits, and alternatives to the procedure were explained to the patient and informed consent was obtained. Procedure: Initial setup. A baseline ECG was recorded. Surface ECG leads and manual cuff blood pressure measurements were monitored. Heart sounds: Normal. Lung sounds: Normal. Treadmill exercise testing was performed using the José Antonio protocol. Study completion: All catheters inserted during the procedure were removed. The patient tolerated the procedure well and was discharged from the lab. Discharge: The patient left the laboratory in stable condition. Birthdate: Patient birthdate: 1945. Sex: Gender: female. Study date: Study date: 04/02/2019. Study time: 00:01 AM. Electronically signed by Dariusz Dahl MD 04/02/2019 16:22
== END 2019-04-02 00:28 ==
PROVIDERS: PCP Family Medicine; Visit Provider Family Medicine
DX: R07.89 Other chest pain (principal); I10 Essential (primary) hypertension; E78.5 Hyperlipidemia, unspecified; Z82.49 Family history of ischemic heart disease and other diseases of the circulatory system
CPT/HCPCS: 78452; 93016; 93018; 93017

== ENCOUNTER 2019-05-18 11:36 | Outpatient (CLI) | payer MEDICARE, SELFPAY ==
--- NOTE | 2019-05-18 11:04 | DI.RAD_ITS ---
SYMPTOM/DIAGNOSIS: HIP PAIN RIGHT HIP AND PELVIS: Three views. Comparison 08/01/18 There is again seen moderate narrowing and mild sclerosis of the right hip joint space. The bones are intact and normally mineralized. The visualized portions of the left hip prosthesis appears stable. There are moderate degenerative changes seen in the lower lumbar spine. The bones appear osteopenic. IMPRESSION: Stable degenerative changes of the right hip.
== END 2019-05-18 11:56 ==
PROVIDERS: PCP Family Medicine; Referring Provider Family Medicine; Visit Provider Student in an Organized Health Care Education/Training Program
DX: M25.551 Pain in right hip (principal); Z96.642 Presence of left artificial hip joint; M85.88 Other specified disorders of bone density and structure, other site; M16.11 Unilateral primary osteoarthritis, right hip
CPT/HCPCS: 99213; 73502

== ENCOUNTER → 2019-06-13 13:44 | Outpatient (BNVA) | payer MEDICARE, SELFPAY | PROVIDERS: PCP Family Medicine; Visit Provider Student in an Organized Health Care Education/Training Program | DX: R07.89 Other chest pain (principal); E78.00 Pure hypercholesterolemia, unspecified; R03.0 Elevated blood-pressure reading, without diagnosis of hypertension | CPT/HCPCS: 99204; 99215 ==

== ENCOUNTER 2019-07-13 09:54 | Outpatient (CLI) | payer MEDICARE, SELFPAY ==
--- NOTE | 2019-07-13 09:46 | DI.RAD_ITS ---
SYMPTOM/DIAGNOSIS: PREOP PLANNING. RIGHT HIP: Comparison is made with 18 May 2019. Again noted is moderate narrowing of the right hip joint space. There is mild periarticular spurring and sclerosis. IMPRESSION: Stable moderate degenerative changes of the right hip.
== END 2019-07-13 10:14 ==
PROVIDERS: PCP Family Medicine; Visit Provider Physician Assistant
DX: M25.551 Pain in right hip (principal); M16.11 Unilateral primary osteoarthritis, right hip
CPT/HCPCS: 36415; 80048; 85027; 86850; 86900; 86901; 73501

== ENCOUNTER 2019-07-13 10:33 | Outpatient (CLI) | payer MEDICARE, SELFPAY ==
--- NOTE | 2019-07-13 09:02 | W.PREOPHP ---
Assessment and Plan Assessment and plan (1) Degenerative joint disease of right hip: Status: Acute Assessment and plan: Plan: Patient is a reliable historian and denies any areas of skin breakdown along the right groin and anterior leg. Educated patient that if they develop any lesions, redness or skin breakdown to contact office as skin concerns would be a reason to cancel surgery. Patient gives verbal understanding. Educated patient on surgery covering surgical technique via models, recovery process, benefits and risks including but not limited to risk of infection, blood clot, fracture, numbness/tingling, damage to soft tissue/blood vessels/nerves in detail. After discussion patient gives verbal understanding of risks and elects to proceed with scheduling surgery. Patient had opportunity to have questions answered to their satisfaction. They will contact office if issues arise. Patient will continue to be scheduled for right total hip replacement with Dr. Ortega. Qualifiers: Osteoarthritis type: unspecified Qualified Code(s): M16.11 - Unilateral primary osteoarthritis, right hip History of Present Illness Narrative: Ms. Arauz is a 73-year-old female who presents to clinic for pre-operative visit for scheduled right MADDIE. Patient is status post left total hip replacement on 08/01/2018; reports no issues with her left MADDIE. Although she is been experiencing right hip pain for several years she has been able to live with mild discomfort. Reports the majority of her right hip pain is located on the anterior groin with some radiation along the posterior lateral aspect of the hip. She describes pain as a intermittent discomfort that is aggravated more throughout the day, when doing stretching exercises, standing, after prolonged walking and getting in/out of her vehicle. Over the summer she experienced difficulty moving the leg and she had adapted by lifting her leg in and out of her vehicle, bed and when crossing her legs. Occasionally she has a catching sensation within the anterior groin with getting dressed. Patient has not been taking Ibuprofen as much over the last month. She continues to walk with a limp, although it has improved some. Patient denies any falls or injuries. She denies any symptoms of muscle weakness, numbness or tingling. Due to her continued pain she was offered surgical intervention and was eager to proceed. Pertinent Surgical Information Operative note from patient's left MADDIE on 08/01/2018 states prosthesis used included: Depuy Hebo Acetabular Component, 52 mm; Depuy Acetabular Liner, 52 x 36 mm; Depuy Corail coxa vara femoral Stem, Size 12; Depuy Altrx Ceramic Femoral Head, Size 36+1.5 mm. For preoperative planning x-rays with mag marker were ordered today. Reports she has continued to have intermittent left-side chest pain that feels like sharp little needles. States symptoms will occur at rest and seem to occur more frequently at night. Denies waking up due to pain. Denies any radiation of symptoms. Feels that episodes occur a few times a week. States that symptoms are occurring less frequently. She recently underwent a myocardial perfusion scan on 04/02/19 - summary stated no myocardial perfusion defects noted; the calculated left ventricular ejection fraction after stress: 52%. Review of Dr. Aguila's note from 06/13/2019 states intermittent left-sided chest pain most likely musculoskeletal but need to consider vasospasm - negative, low risk stress test. Reports only cardiac change since her orthopedic preop visit last year as her symptoms appear to be less frequent; patient underwent left total hip surgery in July 2018 without issues. Reports intermittent pressure-like headaches which resolves on its own. Denies any history of migraine. Denies any need for intervention. Denies past medical history of: stroke, asthma, COPD, sleep apnea, liver issues, hepatitis, gastrointestinal ulcers, bleeding disorders, seizures, migraines, anxiety, depression, diabetes, autoimmune disorders, thyroid issues. Denies prior complications from surgery or anesthesia. Review of Systems Constitutional Constitutional: Denies fever(s), Denies frequent falls and Reports headache(s) (intermittent headaches; denies any recent change) Eyes Eyes: Denies change in vision ENT Ears, Nose, Mouth, and Throat: Denies dizziness, Denies ear discharge, Reports headache(s) (intermittent headaches; denies any recent change), Denies epistaxis, Denies nasal discharge and Denies sore throat Cardiovascular Cardiovascular: Reports chest pain, Reports chest pain at rest (see preop info section), Denies chest pain with activity, Denies diaphoresis, Denies rapid heart rate, Denies irregular heart rhythm, Denies lightheadedness, Denies radiating jaw, neck or arm pain, Denies dyspnea, Denies dyspnea on exertion, Denies orthopnea, Denies paroxysmal nocturnal dyspnea and Denies slow heart rate Respiratory Respiratory: Denies cough, Denies dyspnea, Denies dyspnea on exertion and Denies wheezing Gastrointestinal Gastrointestinal: Denies abdominal pain, Denies melena, Denies hematochezia, Denies constipation, Denies diarrhea, Denies nausea and Denies vomiting Comments: Reports sluggish bowels more recently but states symptoms have improved over the last week Genitourinary Genitourinary: Denies hematuria, Reports urinary frequency (more at night and during the day, however has been increasing water intake), Denies dysuria and Denies urinary urgency Musculoskeletal Musculoskeletal: Reports as per HPI, Denies numbness and Denies tingling Neurologic Neurologic: Denies dizziness, Denies frequent falls, Reports headache(s) (intermittent headaches; denies any recent change), Denies numbness and Denies tingling Psychiatric Psychiatric: Denies anxiety and Denies depression Allergic/Immunologic Allergic/Immunologic: Denies wheezing [facility] Medical History Borderline high blood pressure (Chronic) Patient she has been told she has borderline high blood pressure, she does not take medication Borderline hyperlipidemia (Acute) Reports her total cholesterol was borderline but HDL was good at last plan report, she does not take medication Constipation (Chronic) Gallbladder polyp (Acute) Hepatomegaly (Ruled-out) Tubular adenoma of colon (Chronic) Surgical History H/O colonoscopy (Chronic) History of nephrolithotomy with removal of calculi (Acute) right History of total left hip replacement (Inactive) 08/01/2018 Status post D&C (Acute) Family History Mother Heart disease Stroke Atrial fibrillation Sister Personal history of malignant neoplasm Breast Cancer - diagnosed in her early 50's Father Heart disease Aortic valve replacement Constipation Osteoarthritis Abdominal aortic aneurysm (AAA) Sister Atrial fibrillation Osteoarthritis Hypertension Social History Smoking/Tobacco Use Status: Never Alcohol Intake: never Drug use: Never Substance use type: does not use Number of Children: 7 Meds Home Medications and Allergies Home Medications Medication Instructions Recorded Confirmed Type sennosides [senna] 8.6 mg PO PRN PRN 07/26/18 07/13/19 History docusate sodium [Colace] 100 mg PO BID PRN PRN #0 cap 08/02/18 07/13/19 Rx cholecalciferol (vitamin D3) 1,000 2,000 unit PO DAILY 01/05/19 07/13/19 History unit capsule cyanocobalamin (vitamin B-12) 1,000 mcg PO DAILY 01/16/19 07/13/19 History ibuprofen 200 mg capsule 400 mg PO Q6H PRN cap 06/13/19 07/13/19 History acetaminophen [Mapap Extra 1,000 mg PO TID PRN 07/13/19 07/13/19 History Strength] magnesium oxide 400 mg PO DAILY PRN 07/13/19 07/13/19 History Allergies Allergy/AdvReac Type Severity Reaction Status Date / Time adhesive AdvReac Mild Skin Rash Verified 07/15/19 15:06 latex AdvReac Mild Skin Rash Unverified 07/15/19 15:06 Exam Const General: cooperative and no acute distress HENFL Head: normal to inspection, normocephalic and atraumatic Ears: external ears normal General nose exam: external nose normal and no nasal discharge Face and sinus: face symmetric Mouth: oral mucosae normal, lip normal, tongue normal and moist mucous membranes Teeth and gingiva: dentition normal Throat: posterior oropharynx normal Eyes General: appearance normal, both eyes and all related structures Pupils: PERRL EOM: EOM intact bilaterally Neck Neck: trachea midline Carotids: normal carotid upstroke Lymphatic: no lymphadenopathy noted Resp Effort & Inspection: normal respiratory effort and able to speak in complete sentences Auscultation: clear to auscultation bilaterally, no rales, no rhonchi and no wheezes Cardio Heart Sounds: S1 normal, S2 normal and no murmurs Pulses: radial pulses present bilaterally GI Palpation: soft, no hepatosplenomegaly and nontender Auscultation: normal bowel sounds Skin General skin exam: no rashes or lesions noted Results Labs Result diagrams: 07/13/19 12:00 07/13/19 12:00
[2019-07-13 12:18] LABS: HCT 45.6 % (36.0-46.0); HGB 14.9 g/dL (12.0-15.5); Mean Corp. HGB Concentration 32.7 g/dL (32.0-36.0); Mean Corpuscular Hemoglobin 30.1 pg (27.0-33.0); Mean Corpuscular Volume 92.1 fL (80-95); Mean Platelet Volume 9.6 fL (8.0-11.0); Platelet Count 275 x1000/uL (130-400); RBC 4.95 m/cumm (4.00-5.20); RBC Distribution Width 13.3 % (11.7-14.6); White Blood Cell Count 5.21 k/cumm (4.4-10.8)
[2019-07-13 12:50] LABS: Anion Gap 8.4 mmol/L (3-11); BUN 13 mg/dL (7-18); CO2 28.6 mmol/L (21.0-32.0); Calcium 8.8 mg/dL (8.5-10.1); Chloride 104 mmol/L (98-107); Glucose 85 mg/dL (70-100); Potassium 4.1 mmol/L (3.5-5.1); Sodium 141 mmol/L (136-145)
== END 2019-07-13 10:53 ==
PROVIDERS: PCP Family Medicine; Visit Provider Student in an Organized Health Care Education/Training Program
DX: M25.551 Pain in right hip (principal); M16.11 Unilateral primary osteoarthritis, right hip; Z01.812 Encounter for preprocedural laboratory examination; Z01.818 Encounter for other preprocedural examination; Z96.642 Presence of left artificial hip joint
CPT/HCPCS: 36415; 80048; 85027; 86850; 86900; 86901

== ENCOUNTER 2019-07-18 05:53 | Inpatient (IN) | payer MEDICARE, SELFPAY ==
[2019-07-18] VITALS (11 sets, daily range): BP systolic 87–137; BP diastolic 43–82; PULSE 53–126; RESP 12–20; TEMP 35–37.1; O2SAT 97–100
[2019-07-18] MEDS: Lactated Ringers 1,000 ML 80 ML IV ×2 (06:26→20:31)
[2019-07-18] MEDS: Acetaminophen 500 MG TAB 1000 MG PO (06:27)
[2019-07-18] MEDS: Celecoxib 200 MG CAP 400 MG PO (06:27)
--- NOTE | 2019-07-18 07:23 | DI.RAD_ITS ---
EXAM: XR HIP RT IN OR CLINICAL HISTORY: DJD RIGHT HIP. TECHNIQUE: 2D and realtime digital imaging was performed. COMPARISON: No exams were available for comparison FINDINGS: Intraoperative images demonstrate a right hip prosthesis in excellent position, surrounding bone inta ct.
[2019-07-18] MEDS: ceFAZolin 2 GM/50 ML BAG IVPB (07:54)
[2019-07-18] MEDS: Ketorolac 30 MG/ML VIAL (08:32)
[2019-07-18] MEDS: Bupivacaine 0.25% Pres-Free 30 ML VIAL (08:32)
[2019-07-18] MEDS: Normal Saline 20 ML VIAL (08:32)
--- NOTE | 2019-07-18 09:38 | ROE_ITS ---
Date of service: 07/18/19 Time of Service: 10:11 Operative Note Operative Note DATE OF PROCEDURE: 07/18/19 PRE-OP DIAGNOSIS: Right Hip Osteoarthritis POST-OP DIAGNOSIS: same PROCEDURE: Right Anterior Total Hip Arthroplasty SURGEON: Dany Ortega EXERCISER HORSE: Christopher Sow ANESTHESIA: spinal ESTIMATED BLOOD LOSS: 400 PATHOLOGY: none sent COMPLICATIONS: None Patient was transported to: PACU Patient's condition: stable Implants: 1. Depuy Kirkwood Acetabular Component, 52 mm 2. Depuy Acetabular Liner, 52 x 36 mm 3. Depuy Corail coxa vara femoral Stem, Size 12 4. Depuy Altrx Ceramic Femoral Head, Size 32+1.5 mm Indications: I have seen Anna in clinic for symptoms of hip arthritis, confirmed with radiographic findings. Anna has exhausted nonoperative methods and was having significant limitations in daily function and desired better function and less pain. I discussed the technical details of a hip replacement. I explained the risks of the procedure to include, but not limited to, bleeding, infection, pain, stiffness, fracture, damage to nerves and vessels, damage to muscles and tendons, loosening, instability, leg length inequality, need for repeat procedure, blood clot and cardiopulmonary demise. Despite these risks, she elected to proceed. Findings: There was significant signs of arthritis throughout the hip. There is notable loss of cartilage over the superior aspect of the femoral head. Procedure Description: Anna was greeted in the preoperative holding area where the correct side was identified and marked. The consent was reviewed with the patient and signed. The history and physical was updated. All questions were answered. Anna was taken back to the operating room. A spinal anesthestic was then administered. The patient was placed into the supine position on the operating room table. The patient was then positioned onto the ARCH table. Both feet were wrapped with Webrill cotton wrap along with Coban. The feet were placed in specialized boots for the ARCH table, well seated within the boot and secured. SCDs were applied. The patient was then slid down onto a peroneal post and the nonoperative leg was secured in a leg langford attached to the table. The operative side was placed into the ARCH table attachment and bed height and positioning was secured. A preoperative AP pelvis was obtained to serve as a reference for determining leg lengths. Prophylactic antibiotics in the form of cefazolin were administered. 1g of Tranxemic Acid was given intravenously within 30 minutes of incision. The right leg was then prepped with Chloraprep and draped in a standard fashion. A second prep with Chloraprep was performed prior to placement of a shower-curtain type drape with Iodine impregnated skin protection. A timeout to confirm correct identity, side and site, procedure, allergies, anesthesia, and medical concerns was performed. An obliquely oriented incision was made starting lateral to the ASIS and running distal over the Tensor Fascia Bianca (TFL) muscle belly toward the fibular head, approximately 10cm. The skin and soft tissue was dissected sharply, through Jaycob?s fascia, and to the fascia of the TFL. With the fascia and superior border of the IT band identified, the fascia was incised with a new knife just above any perforators from the IT band. The TFL muscle belly was bluntly dissected away from the fascia and moved laterally. The fat between TFL and rectus was identified to ensure the dissection was not within the TFL. Blunt dissection created space between abductors and the capsule and retractor was pl aced over the lateral femoral neck. The fibers of the rectus femoris tendon were identified and these were freed from the anterior capsule. A second cobra retractor was placed around the medial femoral neck. The TFL was further retracted laterally to show the deep fascia. Careful dissection through this layer identified three main crossing vessels of the lateral femoral circumflex. These were cauterized in multiple locations and then cut without any noticeable bleeding. The TFL was further released bluntly from the deep fascia to expose anterior hip capsule and fat the Osorio orthopaedic retractor was then placed beneath the TFL and against sartorius and medial soft tissues to protect and retract the soft tissues. A T-capsulotomy was then performed starting at the superior lateral acetabulum and moving distally to the intertrochanteric ridge. These capsular flaps were tagged with a No. 1 Ethibond and elevated from within. The capsular flaps were released to the shoulder of the lateral neck and to the lesser trochanter to give excellent visualization of the proximal femur. A neck osteotomy was performed using an oscillating saw based on preoperative templates. This cut started in the shoulder and of the lateral neck and exited medially. The saw was at all times directed medially to avoid injury to the greater trochanter. 6cm of traction was applied to the leg and the osteotomy opened. The femoral head was removed with a corkscrew, making sure to protect the TFL on its exit. This was measured on the back table to determing the starting reamer size. Portions of the rectus obscuring visualization were minimally elevated off the superior acetabulum. An anterior retractor was placed over the anterior wall between capsule and labrum and attached to the Gripper retraction system. A posterior retractor was placed similarly. This provided excellent visualization. The contents of the cotyloid fossa were removed with electrocautery and the labrum was removed with a knife. There was a notable floor osteophyte. Acetabular reaming began with a 45 mm reamer. This first reaming was directed anterior to posterior and medial to get down to the true floor. This was inspected and reamed until the true floor was reached. I then reamed sequentially up to a 51 mm reamer where good fit was obtained. The larger reamers were oriented based on anatomical reference of the anterior and lateral acosta to ensure proper abduction and anteversion. Positioning and size was confirmed with the fluoroscopy. A 52 mm Depuy Kirkwood acetabular component was selected. The acetabulum was reamed around the periphery with the selected acetabular size to prevent a rim fit. The deep tissues were irrigated. The acetabular component was then impacted in a position of about 40-45 degrees of abduction and 15-20 degrees of anteversion, using the patient?s anatomy as the ultimate landmark. Fluoroscopy was used to confirm this. There was excellent heel edge inker machine of the acetabular component and the inserting handle was removed. The acetabular liner, Depuy 52 x 36 mm polyethylene liner, was inserted and lined up with the tines of the acetabular component. There was no soft tissue interposition. The liner was then impacted into position and confirmed to be well-seated. A portion of the jorden-articular cocktail was then injected around the acetabulum into the capsule and periosteum. This cocktail consisted of 50cc of 0.25% Bupivicaine and 20cc of Exparel, expanded to a total of 120cc. Traction was released from the femur. The leg was rotated to 120 degrees. Any remaining medial capsule was released until the lesser trochanter was easily palpable. A Simons retractor was placed medially. The lateral capsule was further released into the shoulder to allow access to the greater trochanter. A Simons retractor was placed over the greater trochanter which allowed the trochanter to flip in front of the capsule for excellent exposure. The leg was brought down into maximal extension and 20 degrees of adduction while ensuring there was no impingement on the acetabulum. Any remnant capsule within the trochanter was released. Piriformis and obturator externis were identified and protected. There was excellent access to the proximal femur. The lateral neck remnant was removed with a rongeur. A blunt canal probe was used to identify the canal and trajectory for later broaching. A box osteotome initiated the broach course. A small curved rasp and a curved curette were used to work laterally. Broaching then began with a size 8 Corail broach. This was inserted manually around the trochanter and into the canal before mallet blows. The broach was seated to a few millimeters below the cut level based on the neck cut and the preoperative template. Sequential broaching was continued until a tight fit was obtained with good rotational control of the femur. 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 The medial calcar, even with the leg rotated 120 degrees still pointed medially at an angle of 60 degrees or so. As much as I tried to follow the posterior cortex of the cut neck surface, the implant like to follow path slightly more anteverted. Therefore, I continued with the past that seem to fit the implant the best rather than forcing it into less anteversion. A trial coxa vara neck was inserted along with a 1.5 trial head. The leg was brought out of extension and adduction and then reduced with traction and internal rotation. The leg was stable anteriorly in a position of 30 degrees of extension and 90 degrees of external rotation. Fluoroscopy was used to ensure there was no fracture and the stem was seated well. Leg lengths were checked with an AP pelvis and pelvic reference points. Once content with the desired offset and leg lengths, the leg was brought back into extension, external rotation and adduction. The periosteum and surrounding tissue was injected with remaining portion of the jorden-articular cocktail. The proximal femur was irrigated as well as the deep tissues. The Depuy Corail coxa vara stem, size 12, was then manually inserted into the proximal femur making sure to control rotation. It was then malleted into position with light blows, giving breaks to allow bone expansion and decrease risk of fracture. The selected Depuy Altrx Ceramic Head, size 36+1.5 mm, was then placed onto the clean and dry trunnion and secured with impaction onto the tapered fit. The leg was brought back out of extension and adduction and reduced with traction and internal rotation. Stability was confirmed with no shuck at 90 degrees of external rotation and 30 degrees of extension. No impingement through range of motion arc. Final x-ray images were obtained with fluoroscopy to confirm adequate positioning and no intraoperative fracture. The deep tissues were thoroughly irrigated with a pulse lavage. The second dose of TXA 1g was administered intravenously. The capsule was then reapproximated with the previously placed Ethibond sutures. The TFL fascia was finally closed with a No. 2 Stratafix, barbed suture. Deep tissues were then reapproximated with 0 Vicryl and a running 2-0 Vicryl. The skin was closed with a running 4-0 Monocryl in a subcuticular fashion. This was reinforced with skin glue. A Mepilex silver dressing was applied. At the end of the case, all counts were correct. Anna was transferred to the hospital bed without difficulty and suffering no apparent complication. Anna has a good prognosis. Physical therapy will start today and without restrictions, weight-bearing as tolerated. Aspirin 81mg BID will be used for DVT prophylaxis.
[2019-07-18] MEDS: Lactated Ringers 1,000 ML 30 ML IV (10:00)
--- NOTE | 2019-07-18 10:00 | DI.RAD_ITS ---
EXAM: XR PELVIS AP INDICATION: s/p R MADDIE. COMPARISON: XR hip RT complete AP pelvis from 05/18/2019 XR HIP RT IN OR from 07/18/2019 TECHNIQUE: 2D digital imaging was performed. FINDINGS: A right hip prosthesis is in excellent position surrounding bone intact. Also a left hip prosthesis i s identified and is in good position surrounding bone intact.
[2019-07-18] MEDS: Ibuprofen 600 MG TAB PO ×2 (13:24→20:32)
--- NOTE | 2019-07-18 14:29 | PT.INIE ---
Date of service: 07/18/19 Time of Service: 13:35 PT Notes Inpatient Physical Therapy Evaluation Date: 07/18/2019 Referring Doctor: Dany Ortega MD PT Orders: PT CONSULT: Status post right MADDIE Precautions: Fall. Standard. WBAT on R LE. Patient Profile/Admitting Diagnosis: Patient is [id number] Anna female who has primary unilateral osteoarthritis of R hip S/P R anterior total hip arthroplasty. PMHX: Medical History Borderline high blood pressure (Chronic) Patient she has been told she has borderline high blood pressure, she does not take medication Borderline hyperlipidemia (Acute) Reports her total cholesterol was borderline but HDL was good at last plan report, she does not take medication Constipation (Chronic) Gallbladder polyp (Acute) Hepatomegaly (Ruled-out) Tubular adenoma of colon (Chronic) Surgical History H/O colonoscopy (Chronic) History of nephrolithotomy with removal of calculi (Acute) right History of total left hip replacement (Inactive) 08/01/2018 Status post D&C (Acute) Social History/Home Situation: Patient lives in a two story home with two steps to enter. Bedroom is on the first floor. She lives alone but has her son coming to assist her during her recovery. She was independent with all aspects of ADLs without the need for an assistive ambulatory device nor adaptive equipment. Equipment Owned/DME: SC, 4WW, 2WW Objective: General: Patient was seen laying supine in bed with HOB elevated. She had a lawson catheter, IV in R UE , and bilateral antithromboemboli pumps. Mental Status: Alert and oriented as to person, place, time, and purpose Pain: 0/10 ROM: Left LE: Hip Flexion WNL, Hip Extension NT, Hip Abduction WNL, Hip Adduction WNL, Knee flexion WNL, Knee Extension WNL, Ankle Dorsiflexion WNL, Ankle Plantar Flexion WNL. Right LE: Hip Flexion 110 degrees. Hip Extension NT. Hip Abduction WNL. Hip Adduction WNL, Knee flexion WNL, Knee Extension WNL, Ankle Dorsiflexion WNL, Ankle Plantar Flexion WNL. Strength: Left LE: Hip flexion 4/5, Hip Extension NT, Hip Abduction 5/5, Hip Adduction 5/5, Knee flexion 4/5, knee extension 5/5, Ankle Dorsiflexion 5/5, Ankle Plantar Flexion 5/5. Right LE: Hip flexion 4/5, Hip Extension NT, Hip Abduction 5/5, Hip Adduction 5/5, Knee flexion 4/5, knee extension 5/5, Ankle Dorsiflexion 5/5, Ankle Plantar Flexion 5/5. Mobility assessment: A mobility assessment was not able to be performed by the patient on 07/18/2019 to the patient becoming orthostatic upon standing. The mobility assessment was moved to the following day (07/19/2019), at which time the patient was seen exiting the bathroom with a FWW, exhibiting decreased stance time on the R, decreased carlene, decreased step length. Rolling L/R: I Supine to sit: I Sit to supine: I Sit to stand: I Stand to sit: I Bed to chair: Supervision Chair to bed: Supervision Gait: Gait activity deferred due to complaints of lightheadedness making patient lie back down in bed. Patient states that she is agreeable to a second session to finish up mobility assessment later this afternoon. Balance: Static sitting: Normal Dynamic sitting: Normal Static Standing: Poor due to orthostatic hypotension Dynamic Standing: Poor due to orthostatic hypotension [facility] Daily Mobility Inpatient Setting: Raw score: 21 CMS score: 29% deficit Assessment: Patient is a 73-year-old female s/p R MADDIE POD 0. She presents with ROM and strength in hip flexion. She experienced orthostatic hypotension upon standing from her bed so her mobility assessment was delayed until the following day. She exhibited independence with ambulating in her room, however the SPT and PT agree that she could continue doing so with supervision. The patient reported she will be assisted by her son at home during her recovery. She is exhibiting signs and symptoms consistent with her current/admitting diagnosis. Goals: 1. Patient will be independent with all bed mobility. 2. Patient will be independent with all gait activities with or without the least restrictive assistive device. 3. Patient will be independent with ascending and descending three 4-inch steps and two 6-inch steps with least restrictive assistive device. 4. Patient will exhibit normal static and dynamic sitting balance. 5. Patient will exhibit fair static and dynamic standing balance. Plan of Care: 2x/day, 1 day/week, 1 week. Plan of care has been reviewed with the M[employer] AUTHORING SPECIALIST providing the service under Physical Therapy direction. Initiate Physical Therapy intervention for strengthening, bed mobility, transfers, gait, stairs, balance training, use of assistive device. Discharge Plan: Patient will be discharged to home under the care of her son after all of the above goals are met. She will then be recommended to begin seeing outpatient PT after two weeks. Thank you for this referral. [facility] With the supervision of: Ann Mcclendon, PT, DPT, CLT [facility]
--- NOTE | 2019-07-18 15:10 | NUR.NOTE ---
Nursing Note: Pt to MS floor from PACU/OR at 1025. A&Ox3. VSS. Catheter draining well, LR@80/hr. Pt oriented to MS floor, call joyce, medication administration, etc. Call joyce within reach. RN will continue to monitor.
[2019-07-18] MEDS: Aspirin E.C. 81 MG TABEC PO (20:32)
[2019-07-19 03:30] VITALS: BP 124/73; PULSE 71; RESP 18; TEMP 36.9; O2SAT 98
[2019-07-19 07:15] VITALS: BP 114/75; PULSE 85; RESP 17; TEMP 37.1; O2SAT 98
--- NOTE | 2019-07-19 07:15 | W.PM.DS.N ---
Date of service: 07/19/19 Time of Service: 13:27 DS: Diagnosis Discharge Diagnosis (1) Degenerative joint disease of right hip: Status: Acute Discharge Plan Disposition Patient Disposition: HOME Condition: Good Discharge Details Reason For Visit: RIGHT HIP DJD Admit Date/Time: 07/18/19 05:53 Admit Provider: Dany Ortega Attending Provider: Dany Ortega Primary Care Provider: Vida Moy V Hospital Course Hospital Course: Patient was admitted to the medical/surgical floor following the procedure. It was tolerated well without any notable medical, surgical, or anesthetic complications. Mobilization began postoperatively. The lawson catheter was removed and voiding spontaneously. Vitals were stable. Physical therapy worked with the patient and was cleared for discharge home. No acute medical issues. Home Meds and New Rx's Prescriptions: New aspirin 81 mg tablet,delayed release (DR/EC) 81 mg PO BID Qty: 60 RF: 0 acetaminophen 500 mg tablet 1,000 mg PO Q8H PRN (Reason: pain) Qty: 90 RF: 3 ibuprofen 600 mg tablet 600 mg PO TID PRNQty: 90 RF: 3 Continued cholecalciferol (vitamin D3) 1,000 unit capsule 2,000 unit PO DAILY RF: 0 sennosides [senna] 8.6 mg Tablet 8.6 mg PO PRN PRNRF: 0 docusate sodium [Colace] 100 mg Capsule 100 mg PO BID PRN PRN (Reason: Constipation) Qty: 0 RF: 0 cyanocobalamin (vitamin B-12) 1,000 mcg Tablet 1,000 mcg PO DAILY RF: 0 magnesium oxide 400 mg magnesium Capsule 400 mg PO DAILY PRNRF: 0 Discontinued ibuprofen 200 mg capsule 400 mg PO Q6H PRNRF: 0 acetaminophen [Mapap Extra Strength] 500 mg tablet 1,000 mg PO TID PRNRF: 0 Discharge Instructions Additional Instructions: Dr. Ortega?s Total Hip Discharge Instructions Activity: The most important activity is to walk. You should try to take short walks a few times a day. You have no restrictions on movement or positioning, but do not try to force what you do. You will find some stiffness and weakness with hip flexion (lifting your knee). Do not try to strengthen this too early, continue to practice walking and stairs and this will come. - Outpatient physical therapy can be helpful to help return you to a normal gait and improve your flexibility and strength. This can start around 2 weeks. For some patients, it?s not necessary. Usually this is determined at the time of discharge or at the first post-operative visit. - You should wear the CAYLA hose on both legs for 2 weeks. Dressing: Keep the surgical dressing in place for at least one week. After the first week it may be removed and replace with light gauze and tape or nothing. It may get wet after 3 days but avoid soaking the dressing. If it gets wet, just lightly pat dry. It is important to always keep some gauze between skin folds, especially when you are sitting. Spend some time with the wound exposed when you are lying flat as the incision does wrinkle onto itself. Medications: - You should take Tylenol and an anti-inflammatory ibuprofen as your primary pain control medications - You have been prescribed a stronger pain medication tramadol for breakthrough pain, take as needed as prescribed. - You will be taking aspirin 81mg twice a day for DVT prevention unless instructed otherwise. - If you have constipation you should take Colace or Miralax (both [id number]). It takes most people 3-4 days to have a bowel movement. Follow-up: 2 weeks Referrals: Dany Ortega MD [ [facility] STAFF PHYSICIAN] - Activity:: Activity as Tolerated Equipment/Supplies:: No Equipment Needed Diet:: As Tolerated Discharge Orders Discharge Orders: Discharge Order (Routine); Ordered 07/19/19 Ordered By: Dany Ortega DS: Summary Status at Discharge Functional status at discharge: uses cane/walker Overall status at discharge: patient is progressing back to baseline Mental Status: mental status grossly normal Speech and Movement: speech and movement normal Mood: congruent mood Affect: normal affect Exam Psych Mental Status: mental status grossly normal Speech and Movement: speech and movement normal Mood: congruent mood Affect: normal affect DS: Data Vitals/I&O Vitals and I&O: Vital Signs Temperature 36.9 C 07/19/19 03:30 Temperature Source Skin 07/19/19 03:30 Pulse 71 07/19/19 03:30 Pulse Rhythm Regular 07/19/19 03:30 Respiratory Rate 18 07/19/19 03:30 Respiratory Effort Non-Labored 07/19/19 03:30 Respiratory Depth Normal 07/19/19 03:30 Respiratory Pattern Normal 07/19/19 03:30 Blood Pressure 124/73 07/19/19 03:30 Pulse Oximetry 98 07/19/19 03:30 Respiratory End-tidal CO2 36 07/18/19 10:21 Oxygen Delivery Method Room Air 07/19/19 03:30 Oxygen Flow Rate 0 07/19/19 03:30 Pain Level 0 07/19/19 03:30 Comment 07/19/19 03:30 Intake & Output 07/18/19 07/18/19 07/19/19 11:59 23:59 11:59 Intake Total 1270.000 / 2554.000 1284 / 2554.000 702.667 / 702.667 Output Total 400 / 2125 1725 / 2125 1000 / 1000 Balance 870.000 / 429.000 -441 / 429.000 -297.333 / -297.333 Weight 67.4 kg Intake: IV 1270.000 / 1594.000 324 / 1594.000 702.667 / 702.667 Oral 960 / 960 Output: Urine 1725 / 1725 1000 / 1000 Estimated Blood Loss 400 / 400 Other: Urine Color Pale Yellow Yellow Yellow Urine Appearance Clear Clear Clear Emesis Description None PFSH Medical History Borderline high blood pressure (Chronic) Patient she has been told she has borderline high blood pressure, she does not take medication Borderline hyperlipidemia (Acute) Reports her total cholesterol was borderline but HDL was good at last plan report, she does not take medication Constipation (Chronic) Gallbladder polyp (Acute) Hepatomegaly (Ruled-out) Tubular adenoma of colon (Chronic) Surgical History H/O colonoscopy (Chronic) History of nephrolithotomy with removal of calculi (Acute) right History of total left hip replacement (Inactive) 08/01/2018 Status post D&C (Acute) Family History Mother Heart disease Stroke Atrial fibrillation Sister Personal history of malignant neoplasm Breast Cancer - diagnosed in her early 50's Father Heart disease Aortic valve replacement Constipation Osteoarthritis Abdominal aortic aneurysm (AAA) Sister Atrial fibrillation Osteoarthritis Hypertension Social History Smoking/Tobacco Use Status: Never Alcohol Intake: never Drug use: Never Substance use type: does not use Number of Children: 7
[2019-07-19] MEDS: Ibuprofen 600 MG TAB PO (07:31)
[2019-07-19] MEDS: Pantoprazole 40 MG TABCR PO (07:31)
[2019-07-19] MEDS: Aspirin E.C. 81 MG TABEC PO (07:31)
[2019-07-19 11:10] VITALS: BP 112/52; PULSE 74; RESP 18; TEMP 36.8; O2SAT 98
--- NOTE | 2019-07-19 15:22 | CHAPLAIN ---
Anna told me about her surgery, her second him. Her first hip was done a year ago. She said she's been working well with PT and expects to go home later today. 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
--- NOTE | 2019-07-19 16:30 | INITIAL_ITS ---
- If Service Date Differs Date of service: 07/19/19 Time of Service: 16:30 Care Management Initial Assess REASON FOR HOSPITALIZATION:: Right Hip DJD PAST MEDICAL HISTORY/PAST SURGICAL HISTORY:: Medical History. Borderline high blood pressure (Chronic). Patient she has been told she has borderline high blood pressure, she does not take medication. Borderline hyperlipidemia (Acute). Reports her total cholesterol was borderline but HDL was good at last plan report, she does not take medication. Constipation (Chronic). Gallbladder polyp (Acute). Hepatomegaly (Ruled-out). Tubular adenoma of colon (Chronic). Surgical History. H/O colonoscopy (Chronic). History of nephrolithotomy with removal of calculi (Acute). right. History of total left hip replacement (Inactive). 08/01/2018. Status post D&C (Acute) PREVIOUS FUNCTIONAL STATUS/SOCIAL/FAMILY SUPPORTS:: Anna lives alone in [facility]. Her son, Gibson, lives nearby and is very supportive and checks in on her every AM & PM. 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 She likes to garden and is very proud of her assortment of house plants. She is independent at baseline. CURRENT FUNCTIONAL STATUS:: Anna was sitting up in her chair when CM met with her. She stated that she had very little pain and that she had worked well with PT. She also reported that she has her own walker and cane and that PT has cleared them for use. She stated that she met with the provider and the plan is for her to go home today, which she is agreeable to. ADVANCE DIRECTIVES:: None on file. She stated that she has a copy at home to fill out. Has patient been provided with information about the portal?: Yes Did the patient sign up for the portal?: No (will sign up at home) CODE STATUS:: Full Code INSURANCE COVERAGE / FINANCIAL ISSUES:: [facility]/[employer] CURRENT HOME/COMMUNITY SERVICES/EQUIPMENT:: Anna has her own 4WW and a cane. She also has acess to a FWW that a friend will let her use if she needs it. PRIMARY CARE PHYSICIAN:: Vida Moy POTENTIAL DISCHARGE NEEDS:: Evaluations for further needs, follow up appointments. PATIENT/FAMILY EDUCATION NEEDS:: Review of community based supports, discharge plan, discussion of self care needs including ask me three ANTICIPATED BARRIERS TO DISCHARGE:: None identified at this time TRANSPORTATION:: Anna will be driven home in a private vehicle by her sonGibson PLAN:: Anna will return home when medically ready with no additional services. Per MD, use of the FWW is recommended as needed. She will be driven home by her sonGibson. Follow up appointment with Ortho. ROMO will follow.
--- NOTE | 2019-07-19 17:21 | PDOC.CMDIS ---
- If Service Date Differs Date of service: 07/19/19 Time of Service: 17:21 LACE Index Scoring Tool - Questions: Length of Stay (in days): 2 Acuity (Admit via E.D.?): No E.D. Visits: 0 - Answers: Total Score: 2 Risk of Readmission: Low Risk Care Management Discharge Reason for Hospitalization: Right Hip DJD Discharge Plan: Anna will return home with no additional services. She will be driven home by her son, Gibson via private vehicle. Follow up appointment with Ortho and outpatient PT as directed by MD. Patient/Family Education Needs: Review discharge instructions regarding activity, discussion of self care needs including Ask Me Three
--- NOTE | 2019-07-19 17:23 | PT.INDS ---
Date of service: 07/19/19 Time of Service: 09:58 PT Notes Inpatient Physical Therapy Discharge Summary Dates: 07/19/2019 Dates of Service: 07/18/2019 and 07/19/2019 only Referring Doctor: Dany Ortega MD PT Orders: PT CONSULT: Status post right MADDIE Precautions: Fall. Standard. WBAT on R LE. Patient Profile/Admitting Diagnosis: Patient is a 73-year-old Anna female who has primary unilateral osteoarthritis of R hip S/P R anterior total hip arthroplasty on postoperative day 1 PMHX: Medical History Borderline high blood pressure (Chronic) Patient she has been told she has borderline high blood pressure, she does not take medication Borderline hyperlipidemia (Acute) Reports her total cholesterol was borderline but HDL was good at last plan report, she does not take medication Constipation (Chronic) Gallbladder polyp (Acute) Hepatomegaly (Ruled-out) Tubular adenoma of colon (Chronic) Surgical History H/O colonoscopy (Chronic) History of nephrolithotomy with removal of calculi (Acute) right History of total left hip replacement (Inactive) 08/01/2018 Status post D&C (Acute) Social History/Home Situation: Patient lives in a two story home with two steps to enter. Bedroom is on the first floor. She lives alone but has her son coming to assist her during her recovery. She was independent with all aspects of ADLs without the need for an assistive ambulatory device nor adaptive equipment. Equipment Owned/DME: SC, 4WW, 2WW Subjective: Patient looks forward to going home today. She agreed to a discharge assessment/session with PT and student PT. She states that she feels a lot better and denies headache, chest pain, dizziness, and lightheadedness. She understands that yesterday's brief episode of lightheadedness and a sense of ill feeling is a combination of her losing some blood and of postoperative complications. She feels confident that she is going to do well at home. Objective: General: Patient was seen laying supine in bed with HOB elevated. She had a lawson catheter, IV in R UE , and bilateral antithromboemboli pumps. Mental Status: Alert and oriented as to person, place, time, and purpose Pain: 0/10 ROM: Left LE: Hip Flexion WNL, Hip Extension NT, Hip Abduction WNL, Hip Adduction WNL, Knee flexion WNL, Knee Extension WNL, Ankle Dorsiflexion WNL, Ankle Plantar Flexion WNL. Right LE: Hip Flexion 110 degrees. Hip Extension NT. Hip Abduction WNL. Hip Adduction WNL, Knee flexion WNL, Knee Extension WNL, Ankle Dorsiflexion WNL, Ankle Plantar Flexion WNL. Strength: Left LE: Hip flexion 4/5, Hip Extension NT, Hip Abduction 5/5, Hip Adduction 5/5, Knee flexion 4/5, knee extension 5/5, Ankle Dorsiflexion 5/5, Ankle Plantar Flexion 5/5. Right LE: Hip flexion 4/5, Hip Extension NT, Hip Abduction 5/5, Hip Adduction 5/5, Knee flexion 4/5, knee extension 5/5, Ankle Dorsiflexion 5/5, Ankle Plantar Flexion 5/5. Gait: Patient was able to tolerate level surface ambulation of 150 feet +10 feet + 10 feet using FWW requiring only standby assist of PT with demonstration of reciprocal gait pattern, safe techniques during directional changes and good walker management. Patient also tolerated three 4 inch steps and two 6 inch steps using step to gait pattern while holding onto bilateral rails without complaints of undue pain, nor discomfort. Rolling L/R: Independent Supine to sit: Independent Sit to supine: Independent Sit to stand: Independent Stand to sit: Independent Bed to chair: Independent Chair to bed: Independent Balance: Static sitting: Normal Dynamic sitting: Normal Static Standing: Good Dynamic Standing: Fair Assessment: Patient is a 73-year-old female s/p R MADDIE POD 0. She presents with ROM and strength in hip flexion. She experienced orthostatic hypotension upon standing from her bed so her mobility assessment was delayed until the following day. She exhibited independence with ambulating in her room, however the SPT and PT agree that she could continue doing so with supervision. The patient reported she will be assisted by her son at home during her recovery. She is exhibiting signs and symptoms consistent with her current/admitting diagnosis. Goals: 1. Patient will be independent with all bed mobility. MET 2. Patient will be independent with all gait activities with or without the least restrictive assistive device. MET with FWW 3. Patient will be independent with ascending and descending three 4-inch steps and two 6-inch steps with least restrictive assistive device. MET 4. Patient will exhibit normal static and dynamic sitting balance. MET 5. Patient will exhibit fair static and dynamic standing balance. MET Discharge Plan: May benefit from skilled physical therapy services according to orthopedic surgeon's timeline recommendations. Patient will be educated and trained on home exercise program per TKA exercise protocol in preparation for outpatient physical therapy services. Thank you for this referral. Ann Mcclendon, PT, DPT, CLT [facility]
== END 2019-07-19 14:54 | disposition home or self-care (01) | DRG 470 ==
LOC: PDS 05:55 → MS 10:05
PROVIDERS: Admitting Provider Student in an Organized Health Care Education/Training Program; PCP Family Medicine; Visit Provider Student in an Organized Health Care Education/Training Program
PROC: 0SR904A Replacement of Right Hip Joint with Ceramic on Polyethylene Synthetic Substitute, Uncemented, Open Approach (ICD-10-PCS; CPT 27130; principal; 2019-07-18 07:30)
DX: M16.11 Unilateral primary osteoarthritis, right hip (principal); M25.551 Pain in right hip; Z96.641 Presence of right artificial hip joint; Z96.642 Presence of left artificial hip joint
CPT/HCPCS: 27130; 97162; 97530; NC; 72170; 73501; J0690; J1885; J2250; J3010

== ENCOUNTER 2019-08-02 10:08 | Outpatient (CLI) | payer MEDICARE, SELFPAY ==
--- NOTE | 2019-08-02 10:05 | DI.RAD_ITS ---
EXAM: XR HIP RT COMPLETE AP PELVIS INDICATION: 1ST POST OP S/P R MADDIE. COMPARISON: XR PELVIS AP from 07/18/2019 TECHNIQUE: 2D digital imaging was performed. FINDINGS: Two views were obtained. There are bilateral hip prostheses in position. The components appear well seated. No other significant bony abnormality seen. IMPRESSION:
== END 2019-08-02 10:28 ==
PROVIDERS: PCP Family Medicine; Referring Provider Family Medicine; Visit Provider Student in an Organized Health Care Education/Training Program
DX: Z96.641 Presence of right artificial hip joint (principal); Z47.1 Aftercare following joint replacement surgery
CPT/HCPCS: 73502

== ENCOUNTER → 2019-08-23 09:46 | Outpatient (BNVA) | payer MEDICARE, SELFPAY | PROVIDERS: PCP Family Medicine; Referring Provider Family Medicine; Visit Provider Student in an Organized Health Care Education/Training Program | DX: Z96.641 Presence of right artificial hip joint (principal); Z96.642 Presence of left artificial hip joint; Z47.1 Aftercare following joint replacement surgery ==

== ENCOUNTER 2019-12-28 04:24 | Outpatient (CLI) | payer MEDICARE, SELFPAY ==
--- NOTE | 2019-12-28 | DI.US_ITS ---
EXAM: US ABDOMEN CLINICAL HISTORY: GALLBLADDER POLYPS K82.4, 1 YR F/U TECHNIQUE: Ultrasound performed using standard protocol. COMPARISON: US ABDOMEN from 12/20/2018 FINDINGS: Liver is normal in size and overall echogenicity. A 9 millimeter echogenic focus is seen in the post erior right lobe of the liver, consistent with a hemangioma, unchanged. The gallbladder is somewhat contracted. Multiple small nonshadowing echogenic foci are seen along the gallbladder wall. There a re 2 small echogenic foci, measuring 3 and 4 millimeters which could represent cholesterol polyps. T hey appear unchanged from the previous exam. There is no biliary dilatation or suspicious gallbladde r mass. The spleen, pancreas and aorta are unremarkable. There is a small parapelvic cyst in the lef t kidney. IMPRESSION: Stable small gallbladder polyps. Stable hyperechoic liver lesion. DATA REPOSITORY:
== END 2019-12-28 04:44 ==
PROVIDERS: PCP Family Medicine; Visit Provider Family Medicine
DX: K82.4 Cholesterolosis of gallbladder (principal); K76.89 Other specified diseases of liver
CPT/HCPCS: 76700

== ENCOUNTER 2025-07-18 04:05 | Outpatient (CLI) | payer MEDICARE, SELFPAY ==
--- NOTE | 2025-07-18 12:57 | DI.RAD_ITS ---
Exam(s) XR FOOT LT COMPLETE EXAM: XR FOOT LT COMPLETE CLINICAL HISTORY: Left foot pain,m79.672. TECHNIQUE: 2D digital imaging was performed of the left foot. Three images were obtained. AP, oblique and lateral views were obtained. COMPARISON: No exams were available for comparison FINDINGS: BONES: No acute fracture is present. No bony destructive lesion is seen. JOINTS: No dislocation present. There is a hallux valgus deformity. There are degenerative changes seen in the foot predominantly involving the interphalangeal joints of the toes. There is narrowing of the 1st MTP joint. Hammertoe deformities of the 2nd through 5th toes are noted. SOFT TISSUE: Normal. IMPRESSION: Degenerative changes in the left foot as described above with hallux valgus deformity. DATA REPOSITORY: RADIATION DOSE DELIVERED:
--- NOTE | 2025-07-18 12:57 | DI.RAD_ITS ---
Exam(s) XR FOOT RT COMPLETE EXAM: XR FOOT RT COMPLETE CLINICAL HISTORY: Right foot pain,m79.671. TECHNIQUE: 2D digital imaging was performed of the right foot. Three images were obtained. AP, oblique and lateral views were obtained. COMPARISON: No exams were available for comparison FINDINGS: BONES: No acute fracture is present. No bony destructive lesion is seen. JOINTS: No dislocation present. There is a hallux valgus deformity. There are degenerative changes of the foot predominantly involving the interphalangeal joints of the toes. There is joint space narrowing at the 1st MTP joint. SOFT TISSUE: Normal. IMPRESSION: Degenerative changes seen in the right foot as described. DATA REPOSITORY: RADIATION DOSE DELIVERED:
== END 2025-07-18 04:25 ==
PROVIDERS: PCP Family Medicine; Visit Provider Podiatrist
DX: M19.071 Primary osteoarthritis, right ankle and foot (principal); M19.072 Primary osteoarthritis, left ankle and foot; M20.12 Hallux valgus (acquired), left foot; M21.611 Bunion of right foot; M21.612 Bunion of left foot; M79.672 Pain in left foot; M21.42 Flat foot [pes planus] (acquired), left foot; M76.822 Posterior tibial tendinitis, left leg
CPT/HCPCS: 99203; 73630

== ENCOUNTER → 2025-08-15 13:11 | Outpatient (BNVA) | payer MEDICARE, SELFPAY | PROVIDERS: Referring Provider Family Medicine; Visit Provider Podiatrist | DX: M79.672 Pain in left foot (principal); M21.612 Bunion of left foot; M21.611 Bunion of right foot; M76.822 Posterior tibial tendinitis, left leg; M21.42 Flat foot [pes planus] (acquired), left foot | CPT/HCPCS: 99213 ==

== ENCOUNTER → 2025-09-12 13:37 | Outpatient (BNVA) | payer MEDICARE, SELFPAY | PROVIDERS: PCP Family Medicine; Visit Provider Podiatrist | DX: M76.822 Posterior tibial tendinitis, left leg (principal); M21.42 Flat foot [pes planus] (acquired), left foot; M79.672 Pain in left foot; M21.612 Bunion of left foot; M21.611 Bunion of right foot | CPT/HCPCS: 99213 ==